=== PATIENT | male | born 1935 | race Caucasian/White ===

== ENCOUNTER → 2017-11-12 | Outpatient (CLI) | payer MEDICARE ==
--- NOTE | 2017-11-12 11:34 | XR ---
EXAMINATION TYPE: XR chest 2V DATE OF EXAM: 11/12/2017 COMPARISON: NONE HISTORY: Shortness of breath TECHNIQUE: Frontal and lateral views of the chest are obtained. FINDINGS: Scattered senescent parenchymal changes noted. Hyperinflation compatible with COPD. No evidence for infiltrate. No evidence for atelectasis. Heart size is stable. Mediastinal structures are stable and grossly unremarkable. No evidence for hilar prominence. Degenerative changes dorsal spine. IMPRESSION: 1. No evidence for acute pulmonary disease.
== END | disposition home or self-care (01) ==
LOC: RADXRMAIN 11:15
PROVIDERS: ATTEND Physical Medicine & Rehabilitation
DX: Z01.818 Encounter for other preprocedural examination (principal)
CPT/HCPCS: 71046

== ENCOUNTER → 2017-11-19 | Outpatient (CLI) | payer MEDICARE ==
--- NOTE | 2017-11-19 14:31 | CT ---
EXAMINATION TYPE: CT lumbar spine wo con DATE OF EXAM: 11/19/2017 2:09 PM COMPARISON: None HISTORY: Spinal stenosis CT DLP: 650.60 mGycm Automated exposure control for dose reduction was used. TECHNIQUE: Unenhanced CT of the lumbar spine was performed. Bone and soft tissue window settings are submitted as well as coronal and sagittal reconstructions. FINDINGS: There is grade 2 anterolisthesis of L3 on L4 with bilateral pars interarticularis defects. There is also moderate to severe multilevel degenerative disc disease that also contribute to this fi nding. There are bridging anterior osteophytes, facet arthropathy, intervertebral disc space narrowin g, vacuum disc disease, intervertebral discs space desiccation, and endplate sclerosis. Schmorl's nod e is seen in the anterior endplate of T11. There is a solid appearing left lower lobe pulmonary nodule measuring 4 mm on series 4 image 1. Retic ular opacity within the right lung base may relate to atelectasis or early interstitial lung disease. There is a small hiatal hernia. Right renal cyst measures 2.4 cm. Scattered colonic diverticula are noted. There is an infrarenal abdominal aortic aneurysm, incompletely evaluated due to lack of intrav enous contrast. However this measures 3.0 x 3.0 cm on series 3 image 67 with severe calcific atheroma tous change. This extends into the common iliac arteries as the right measures 1.8 cm and the left me asures 1.7 cm on series 3 image 82. There is a nonobstructing right lower pole renal calculus measuri ng 8 mm. There is a mild levoscoliotic curvature of the lumbar spine. Right paraspinal musculature gr eater than left paraspinal musculature displays generalized atrophy most pronounced in the lower lumb osacral spine. L1-L2: There is a broad-based disc bulge that examination with facet arthropathy and ligamentum flavu m buckling create mild spinal canal stenosis and moderate bilateral neural foraminal narrowing. L2-L3: There is a broad-based disc bulge that in combination with ligamentum flavum buckling and face t arthropathy creating mild spinal canal stenosis and mild bilateral neural foraminal narrowing. L3-L4: There is disc uncovering, a broad-based disc bulge, extensive facet arthropathy, pars interart icularis defects, and extensive ligamentum flavum buckling creating at least moderate spinal canal st enosis in the transverse dimension, and severe bilateral neural foraminal narrowing impressing upon t he exiting L3 nerve roots. L4-L5: There is a paracentral disc herniation superimposed upon a broad-based disc bulge. Additionall y there is extensive facet arthropathy and mild ligamentum flavum buckling creating severe bilateral neural foraminal narrowing impressing upon the exiting L4 nerve root. There is mild spinal canal sten osis. L5-S1: There is a broad-based disc bulge and extensive facet arthropathy with posterior protruding os teophytes and complete loss of the intervertebral disc space resulting in moderate to severe bilatera l neural foraminal narrowing. No spinal canal stenosis at this level. IMPRESSION: 1. Extensive multilevel degenerative disc disease with grade 2 anterolisthesis of L3 on L4 resulting in severe bilateral neural foraminal narrowing at this level and at least moderate spinal canal steno sis. 2. Central disc herniation in association with extensive degenerative changes at L4-L5 creating sever e bilateral neural foraminal narrowing and mild spinal canal stenosis. 3. Extensive degenerative change at L5-S1 creating moderate to severe bilateral neural foraminal narr owing. Degenerative change at L2-L3 creates mild spinal canal stenosis. 4. Infrarenal abdominal aortic aneurysm extending into the common iliac arteries, incompletely evalua gina secondary to lack of intravenous contrast. 5. Solitary 4 mm left lower lobe pulmonary nodule. Full characterization with chest CT could be perfo rmed. 6. Other incidental finding such as a nonobstructing right lower pole renal calculus, paraspinal musc ulature atrophy, and possible early interstitial lung disease at the right lung base.
== END | disposition home or self-care (01) ==
LOC: RADCTMAIN 13:40
PROVIDERS: ATTEND Physical Medicine & Rehabilitation
DX: M48.061 Spinal stenosis, lumbar region without neurogenic claudication (principal); M99.73 Connective tissue and disc stenosis of intervertebral foramina of lumbar region; M51.27 Other intervertebral disc displacement, lumbosacral region; M43.16 Spondylolisthesis, lumbar region; M51.36 Other intervertebral disc degeneration, lumbar region; M47.817 Spondylosis without myelopathy or radiculopathy, lumbosacral region
CPT/HCPCS: 72131

== ENCOUNTER → 2018-05-05 | Outpatient (CLI) | payer MEDICARE ==
[2018-05-05 10:35] LABS: Blood Urea Nitrogen 32 mg/dL (9-20)
--- NOTE | 2018-05-05 13:10 | CT ---
EXAMINATION TYPE: CT angio neck DATE OF EXAM: 05/05/2018 HISTORY: lt carotid stenosis COMPARISON: 10/05/2015 CT DLP: 301.3 mGycm. Automated Exposure Control for Dose Reduction was Utilized. TECHNIQUE: CTA scan of the neck is performed with IV Contrast, patient injected with 65 mL of Isovue 370, axial images are obtained, coronal and sagittal reformatted images are reviewed. Three-D recons tructed images are created on an independent workstation and reviewed. FINDINGS: Carotid/Vascular Structures: There is a conventional three-vessel branch pattern of the aortic arch. Post CABG changes of the mediastinum are partially visualized. Moderate calcific and noncalcific athe romatous plaquing of the visualized thoracic aorta is seen. No hemodynamically significant stenosis i s noted within either common carotid artery. There is a focal dissection flap seen within the right common carotid artery just prior to the caroti d bulb measuring approximately 7 mm in length seen on axial series 4 image 57 and 58 acentrically. Th ere is calcific and noncalcific atheromatous plaquing of the right carotid bulb with less than 50% st enosis. Cervical portions of the right internal carotid artery appear patent. Calcific plaquing is se en of the cavernous and supraclinoid portions of the right internal carotid artery. Within the left carotid bulb there is focal short segment stenosis of approximately 80%, progressed f rom the prior with a short segment of approximately 7 mm. There is diminutive overall size of the lef t internal carotid artery from eccentric atheromatous plaquing is seen posteriorly. This creates less than 50% stenosis. Remainder of the cervical portions of the left internal carotid artery demonstrat es no hemodynamically significant stenosis. Atherosclerosis is also noted of the cavernous and suprac linoid portions of the left internal carotid artery. Other: Minimal honeycombing is seen anteriorly within the upper lobes indicative of mild fibrosis wit h minimal centrilobular emphysematous change. Moderate multilevel degenerative disc disease of the ce rvical spine is present. Circumferential moderate mucosal thickening of the sphenoid sinus and mild m ucosal thickening in the ethmoid sinuses are seen. Thyroid gland appears diminutive in size. IMPRESSION: 1. Progressive atherosclerosis of the left carotid bulb with degree approximately 80%, progressed fro m 50% over a short segment of 7 mm with diminutive size of the proximal left internal carotid artery although stenosis remains less than 50%. 2. No hemodynamically significant stenosis within the right arterial system of the neck. 3. Mild anterior upper lobe pulmonary fibrosis.
== END ==
LOC: RADCTMAIN 09:51
PROVIDERS: ATTEND Thoracic Surgery (Cardiothoracic Vascular Surgery)
DX: I65.22 Occlusion and stenosis of left carotid artery (principal)
CPT/HCPCS: 82565; 84520; 70498; 36415; Q9967

== ENCOUNTER → 2018-05-31 | Outpatient (CLI) | payer MEDICARE ==
[2018-05-31 08:31] LABS: Blood Urea Nitrogen 31 mg/dL (9-20)
--- NOTE | 2018-05-31 09:29 | CT ---
EXAMINATION TYPE: CT chest w con DATE OF EXAM: 05/31/2018 COMPARISON: Lumbar spine CT 11/19/2017 HISTORY: Solitary pulmonary nodule CT DLP: 325.8 mGycm Automated exposure control for dose reduction was used. CONTRAST: CT scan of the chest is performed with IV Contrast, patient injected with 100 mL of Isovue 300. FINDINGS: LUNGS: There is a 3 mm superior segment right lower lobe pleural-based pulmonary nodule. Subsegmental changes are most atelectasis. 4 mm nodule at the left lung base appears stable from the recent CT sc an. No consolidative pneumonia, pleural effusion or pneumothorax. MEDIASTINUM: Sternotomy wires are seen and there is dural lead. The heart is enlarged. Atheroscleroti c change of the aorta and dense coronary artery calcification. Small hiatal hernia noted. No patholog ic adenopathy. OTHER: Hypertrophic and degenerative change of the spine. Simple appearing right renal cyst. IMPRESSION: 1. Stable 4 mm left lower lobe pulmonary nodule. 2. 3 mm pleural-based superior segment right lower lobe pulmonary nodule. Continued 6 month follow-up CT of the chest for both nodules recommended to confirm stability over the course of 2 years.
== END ==
LOC: RADCTMAIN 07:55
PROVIDERS: ATTEND Family Medicine
DX: R91.1 Solitary pulmonary nodule (principal); I71.4 Abdominal aortic aneurysm, without rupture
CPT/HCPCS: 82565; 84520; 71260; 36415; Q9967

== ENCOUNTER → 2018-11-29 | Outpatient (CLI) | payer MEDICARE ==
[2018-11-29 10:58] LABS: African American GFR (CKD) >90 (>60 ml/min/1.73 sqM); Blood Urea Nitrogen 26 mg/dL (9-20)
--- NOTE | 2018-11-29 17:31 | CT ---
EXAMINATION TYPE: CT chest w con DATE OF EXAM: 11/29/2018 COMPARISON: HISTORY: Pulmonary nodule CT DLP: 464 mGycm, Automated exposure control for dose reduction was used. CONTRAST: Performed injected with 100 ml mL of Isovue 300. TECHNIQUE: Axial images were obtained at 5 mm thick sections. Reconstructed images are reviewed on [employer] computer in the coronal plane. FINDINGS: Portion of the thyroid visualized is normal. Are at 0.3 cm pleural-based nodule within the posterior right lung is less well visualized on the current examination. No interval growth is eviden t. No new nodules are evident. There is a stable 0.4 cm nodule left lower lobe. Series 4 image 42. Mild increased lung markings are in the periphery of the right lung base likely on the basis of mild pulmonary fibrosis. This was present previously. No enlarged mediastinal or hilar adenopathy is evident. The ascending aorta diameter at the level o f the main pulmonary artery is 3.1 cm. The main pulmonary artery diameter at the bifurcation is 2.1 cm. Artery artery calcifications present. Limited CT sections are obtained through the upper abdomen. There is a 3.1 cm cyst measuring 3 Hounsf ield units at superior pole right kidney IMPRESSIONS: 1. Stable 3 mm pleural-based nodule. 2. Stable 4 mm superior segment left lower lobe nodule. 3. Continued monitoring is recommended with follow-up CT chest with contrast in 6 months.
== END | disposition home or self-care (01) ==
LOC: RADCTMAIN 10:14
PROVIDERS: ATTEND Family Medicine
DX: R91.1 Solitary pulmonary nodule (principal)
CPT/HCPCS: 82565; 84520; 71260; 36415; Q9967

== ENCOUNTER → 2019-06-02 | Outpatient (CLI) | payer MEDICARE ==
[2019-06-02 10:25] LABS: African American GFR (CKD) >90 (>60 ml/min/1.73 sqM); Blood Urea Nitrogen 26 mg/dL (9-20); Non-African American GFR(CKD) 88 (>60 ml/min/1.73 sqM)
--- NOTE | 2019-06-02 11:41 | CT ---
EXAMINATION TYPE: CT chest w con DATE OF EXAM: 06/02/2019 COMPARISON: 11/29/2018 and 05/31/2018 HISTORY: 84-year-old male Solitary pulmonary nodule TECHNIQUE: Contiguous axial scanning of the chest after the administration of 100 mL of Isovue 300. Coronal/sagittal reconstructions performed. CT DLP: 336.1mGycm. Automatic exposure control utilized for a dose reduction. FINDINGS: Median sternotomy wires was pulled proximal CABG changes. Heart normal size without pericardial effusion. Aorta normal caliber with mild atherosclerotic arch calcifications and conventional arch vessel branc katrina anatomy. No thoracic lymphadenopathy by CT size criteria. Trace bilateral gynecomastia. Mild centrilobular emphysema. Subpleural groundglass and reticulation is peripheral right base unchan ged from 05/31/2018, probably some type of interstitial fibrosis or scarring. Strandy atelectasis or s carring inferior lingula. No consolidation or pleural effusion. Stable 5 mm posterior left lower lobe pulmonary nodule, axial image 42 dating back to 05/31/2018. Stable 3 mm subpleural pulmonary nodule superior segment right lower lobe, axial image 30 dating back to 05/31/2018. Small hiatal hernia redemonstrated. 2.8 cm right upper pole renal cyst. Moderate stool burden. Modera te atherosclerotic changes within the abdominal aorta with ectasia of the visualized mid abdominal ao rta to 2.7 cm. Bones: Bridging anterior endplate spondylosis throughout the thoracic spine compatible with DISH. IMPRESSION: 1. COPD with mild emphysema and suspected underlying pulmonary arterial hypertension. 2. Some stable interstitial fibrosis at the right greater than left lung bases. 3. A 5 mm left lower lobe and 3 mm right lower lobe pulmonary nodule are stable for a year compatible with a benign etiology.
== END | disposition home or self-care (01) ==
LOC: RADCTMAIN 09:31
PROVIDERS: ATTEND Family Medicine
DX: J43.9 Emphysema, unspecified (principal); J84.10 Pulmonary fibrosis, unspecified
CPT/HCPCS: 82565; 84520; 71260; 36415; Q9967

== ENCOUNTER 2021-03-22 12:04 | Observation (INO) | payer MEDICARE ==
--- NOTE | 2021-03-22 12:40 | ED ---
Arrhythmia/Palpitations HPI - General Chief Complaint: Arrhythmia/Palpitations Stated Complaint: Afib Time Seen by Provider: 03/22/21 12:23 Source: patient Mode of arrival: wheelchair Limitations: no limitations - History of Present Illness Initial Comments: This 85-year-old male presents with a complaint of some fatigue which is been present over the last 4 days. He states that his blood pressure was low the last 2 days as well. He had a systolic of 81 yesterday and his blood pressure today was 65/51. He saw his primary care physician and they found that he is in atrial fibrillation. His systolic in the office apparently was 90. He denies any chest pain, shortness of breath, fevers, chills. He denies any complaints other than some fatigue. He denies any leg pain or swelling. He denies any history of atrial fibrillation. He does have a history of previous myocardial infarction 20 years ago and had a CABG at that time. He follows up with Dr. Mccann from cardiology every 6 months. No other complaints or modifying factors. He does relate that he has had occasional dry cough but this is not out of the ordinary. He denies any exposure to over. - Related Data Allergies Allergy/AdvReac Type Severity Reaction Status Date / Time No Known Allergies Allergy Verified 03/22/21 12:18 Review of Systems ROS Statement: Those systems with pertinent positive or pertinent negative responses have been documented in the HPI. ROS Other: All systems not noted in ROS Statement are negative. Past Medical History Past Medical History: Coronary Artery Disease (CAD), Hyperlipidemia, Hyper tension History of Any Multi-Drug Resistant Organisms: None Reported Past Surgical History: Coronary Bypass/CABG, Heart Catheterization With Stent Past Psychological History: No Psychological Hx Reported Smoking Status: Never smoker Past Alcohol Use History: Occasional Past Drug Use History: None Reported General Exam - General Exam Comments Initial Comments: GENERAL: The patient is well nourished and well hydrated. VITAL SIGNS: Heart rate, blood pressure, respiratory rate reviewed as recorded in nurse's notes. EYES: Pupils are round and reactive. Extraocular movements are intact. No conjunctival / lid redness or swelling. ENT: No external evidence of injury, swelling, or ecchymosis. Airway is patent. Throat is clear. NECK: Nontender. No swelling or evidence of injury. No subcutaneous emphysema. Trachea is midline. No thyroid mass. HEART: Irregular rhythm, normal rate. Good peripheral pulses. LUNGS/CHEST: Breath sounds clear and equal bilaterally. No rales, rhonchi, or wheezes. No ecchymosis, subcutaneous emphysema, or tenderness. ABDOMEN: Abdomen soft without tenderness. No palpable masses or organomegaly. No peritoneal signs. No abdominal wall swelling or ecchymosis. EXTREMITIES: No extremity tenderness. Normal muscle tone and function. No thoracolumbar tenderness. NEUROLOGIC: Sensation is grossly intact. Cranial nerve exam reveals face is symmetrical, tongue is midline, speech is clear. SKIN: No abrasions or ecchymosis is noted. No induration or masses noted. PSYCHIATRIC: Alert and oriented. Appropriate behavior and judgment. Limitations: no limitations Course Vital Signs 03/22/21 12:14 Temperature 97.9 F Pulse Rate 86 Respiratory 18 Rate Blood Pressure 130/80 O2 Sat by Pulse 98 Oximetry Medical Decision Making - Medical Decision Making Patient was seen and examined. All diagnostics are reviewed. EKG was done and shows atrial fibrillation at a rate of 87. There is no acute ST-T wave changes identified. The QRS duration is 106 and the QTC intervals 447. The laboratory shows mild hyponatremia and mild hypochloremia. Remainder of labs are unremarkable. Chest x-ray shows evidence of a right lower lobe infiltrate. Please see report for details. The patient is started on Rocephin and Zithromax intravenously. He also will be started on heparin. The exact cause of the new-onset atrial fibrillation is not definitively determined. It is felt as though he benefit from admission, IV antibiotics, and cardiology consultation. Patient is agreeable as well. Case is discussed with Dr. Botello from internal medicine and he is agreeable with current plan. - Lab Data Result diagrams: 03/22/21 12:55 03/22/21 12:55 Lab Results 03/22/21 03/22/21 03/22/21 Range/Units 12:55 12:55 12:55 WBC 5.0 (3.8-10.6) k/uL RBC 4.53 (4.30-5.90) m/uL Hgb 13.3 (13.0-17.5) gm/dL Hct 40.2 (39.0-53.0) % MCV 88.8 (80.0-100.0) fL MCH 29.4 (25.0-35.0) pg MCHC 33.1 (31.0-37.0) g/dL RDW 14.4 (11.5-15.5) % Plt Count 174 (150-450) k/uL MPV 7.5 Neutrophils % (Manual) 66 % Band Neuts % (Manual) 2 % Lymphocytes % (Manual) 17 % Monocytes % (Manual) 15 % Neutrophils # (Manual) 3.40 (1.3-7.7) k/uL Lymphocytes # (Manual) 0.85 L (1.0-4.8) k/uL Monocytes # (Manual) 0.75 (0-1.0) k/uL Nucleated RBCs 0 (0-0) /100 WBC Manual Slide Review Performed RBC Morphology Normal PT 10.0 (9.0-12.0) sec INR 0.9 (<1.2) APTT 25.7 (22.0-30.0) sec Sodium 131 L (137-145) mmol/L Potassium 4.4 (3.5-5.1) mmol/L Chloride 97 L (98-107) mmol/L Carbon Dioxide 29 (22-30) mmol/L Anion Gap 5 mmol/L BUN 19 (9-20) mg/dL Creatinine 0.69 (0.66-1.25) mg/dL Est GFR (CKD-EPI)AfAm >90 (>60 ml/min/1.73 sqM) Est GFR (CKD-EPI)NonAf 88 (>60 ml/min/1.73 sqM) Glucose 103 H (74-99) mg/dL Calcium 8.8 (8.4-10.2) mg/dL Magnesium 2.0 (1.6-2.3) mg/dL Total Bilirubin 0.4 (0.2-1.3) mg/dL AST 35 (17-59) U/L ALT 22 (4-49) U/L Alkaline Phosphatase 65 (38-126) U/L Troponin I (0.000-0.034) ng/mL Total Protein 6.7 (6.3-8.2) g/dL Albumin 3.9 (3.5-5.0) g/dL TSH 2.160 (0.465-4.680) mIU/L Urine Color Urine Appearance (Clear) Urine pH (5.0-8.0) Ur Specific [place] (1.001-1.035) Urine Protein (Negative) Urine Glucose (UA) (Negative) Urine Ketones (Negative) Urine Blood (Negative) Urine Nitrite (Negative) Urine Bilirubin (Negative) Urine Urobilinogen (<2.0) mg/dL Ur Leukocyte Esterase (Negative) Urine RBC (0-5) /hpf Urine WBC (0-5) /hpf Ur Squamous Epith Cells (0-4) /hpf Hyaline Casts (0-2) /lpf Urine Mucus (None) /hpf 03/22/21 03/22/21 Range/Units 12:55 12:55 WBC (3.8-10.6) k/uL RBC (4.30-5.90) m/uL Hgb (13.0-17.5) gm/dL Hct (39.0-53.0) % MCV (80.0-100.0) fL MCH (25.0-35.0) pg MCHC (31.0-37.0) g/dL RDW (11.5-15.5) % Plt Count (150-450) k/uL MPV Neutrophils % (Manual) % Band Neuts % (Manual) % Lymphocytes % (Manual) % Monocytes % (Manual) % Neutrophils # (Manual) (1.3-7.7) k/uL Lymphocytes # (Manual) (1.0-4.8) k/uL Monocytes # (Manual) (0-1.0) k/uL Nucleated RBCs (0-0) /100 WBC Manual Slide Review RBC Morphology PT (9.0-12.0) sec INR (<1.2) APTT (22.0-30.0) sec Sodium (137-145) mmol/L Potassium (3.5-5.1) mmol/L Chloride (98-107) mmol/L Carbon Dioxide (22-30) mmol/L Anion Gap mmol/L BUN (9-20) mg/dL Creatinine (0.66-1.25) mg/dL Est GFR (CKD-EPI)AfAm (>60 ml/min/1.73 sqM) Est GFR (CKD-EPI)NonAf (>60 ml/min/1.73 sqM) Glucose (74-99) mg/dL Calcium (8.4-10.2) mg/dL Magnesium (1.6-2.3) mg/dL Total Bilirubin (0.2-1.3) mg/dL AST (17-59) U/L ALT (4-49) U/L Alkaline Phosphatase (38-126) U/L Troponin I 0.014 (0.000-0.034) ng/mL Total Protein (6.3-8.2) g/dL Albumin (3.5-5.0) g/dL TSH (0.465-4.680) mIU/L Urine Color Yellow Urine Appearance Clear (Clear) Urine pH 6.0 (5.0-8.0) Ur Specific [place] 1.021 (1.001-1.035) Urine Protein 1+ H (Negative) Urine Glucose (UA) Negative (Negative) Urine Ketones Negative (Negative) Urine Blood Negative (Negative) Urine Nitrite Negative (Negative) Urine Bilirubin Negative (Negative) Urine Urobilinogen <2.0 (<2.0) mg/dL Ur Leukocyte Esterase Negative (Negative) Urine RBC 2 (0-5) /hpf Urine WBC 3 (0-5) /hpf Ur Squamous Epith Cells <1 (0-4) /hpf Hyaline Casts 7 H (0-2) /lpf Urine Mucus Many H (None) /hpf Disposition Clinical Impression: New onset atrial fibrillation, Fatigue, Hypotension, Pneumonia Disposition: ADMITTED IP TO THIS [facility] Condition: Fair Is patient prescribed a controlled substance at d/c from ED?: No Referrals: Tamica Trujillo MD [Primary Care Provider] - 1-2 days Time of Disposition: 14:40 Decision Date: 03/22/21 Decision Time: 14:41
--- NOTE | 2021-03-22 13:08 | XR ---
EXAMINATION TYPE: XR chest 2V DATE OF EXAM: 03/22/2021 COMPARISON: 11/12/2017 INDICATION: Dysrhythmia TECHNIQUE: Frontal and lateral views of the chest are obtained. FINDINGS: The heart size is normal. The pulmonary vasculature is normal. Mild infiltrates at the right lung base. IMPRESSION: 1. Right lower lobe infiltrate is nonspecific. Correlate for atelectasis and pneumonia, consider atyp ical pneumonia
[2021-03-22 13:22] LABS: ALT 22 U/L (4-49); AST 35 U/L (17-59); African American GFR (CKD) >90 (>60 ml/min/1.73 sqM); Albumin 3.9 g/dL (3.5-5.0); Alkaline Phosphatase 65 U/L (38-126); Anion Gap 5 mmol/L; Blood Urea Nitrogen 19 mg/dL (9-20); Calcium 8.8 mg/dL (8.4-10.2); Carbon Dioxide 29 mmol/L (22-30); Chloride 97 mmol/L (98-107); Glucose 103 mg/dL (74-99); Non-African American GFR(CKD) 88 (>60 ml/min/1.73 sqM); Potassium 4.4 mmol/L (3.5-5.1); Sodium 131 mmol/L (137-145); Total Bilirubin 0.4 mg/dL (0.2-1.3); Total Protein 6.7 g/dL (6.3-8.2)
[2021-03-22 13:25] LABS: HCT 40.2 % (39.0-53.0); HGB 13.3 gm/dL (13.0-17.5); MCH 29.4 pg (25.0-35.0); MCHC 33.1 g/dL (31.0-37.0); MCV 88.8 fL (80.0-100.0); Mean Platelet Volume 7.5; Platelet Count 174 k/uL (150-450); RBC 4.53 m/uL (4.30-5.90); RDW 14.4 % (11.5-15.5)
[2021-03-22 13:27] LABS: INR 0.9 (<1.2); Partial Thromboplastin Time 25.7 sec (22.0-30.0)
[2021-03-22 13:52] LABS: Band Neutrophils % 2 %; Lymphocytes # (M) 0.85 k/uL (1.0-4.8); Monocytes # (M) 0.75 k/uL (0-1.0); Neutrophils % (M) 66 %; Nucleated Red Blood Cells 0 /100 WBC (0-0); Total Cells Counted 100
[2021-03-22 14:15] LABS: Appearance,Urine Clear (Clear); Bilirubin,Urine Negative (Negative); Blood,Urine Negative (Negative); Color,Urine Yellow; Glucose,Urine (UA) Negative (Negative); Hyaline Casts,Urine 7 /lpf (0-2); Ketones,Urine Negative (Negative); Leukocyte Esterase,Urine Negative (Negative); Mucus,Urine Many /hpf; Nitrite,Urine Negative (Negative); Protein,Urine 1+ (Negative); RBC,Urine 2 /hpf (0-5); Specific Gravity,Urine 1.021 (1.001-1.035); Squamous Epithelial Cell,Urine <1 /hpf (0-4); Urobilinogen,Urine <2.0 mg/dL (<2.0); WBC,Urine 3 /hpf (0-5)
[2021-03-22] MEDS ORDERED: AZITHROMYCIN 500 MG in SODIUM CHLORIDE 0.9% 250 ML IVPB STA (14:33)
[2021-03-22] MEDS ORDERED: HEPARIN SODIUM 1,000 UN/ML (10ML VL) IV PRN (14:41)
[2021-03-22] MEDS ORDERED: HEPARIN SODIUM 1,000 UN/ML (10ML VL) IV ONE (14:41)
[2021-03-22] MEDS ORDERED: ACETAMINOPHEN TAB 325 MG TAB PO PRN (14:43)
[2021-03-22] MEDS: HEPARIN SOD,PORK IN 0.45% NACL 25,000 UNIT in 0.45% NACL 1 250ML.BAG IV SCH (17:03)
[2021-03-23] MEDS: PANTOPRAZOLE 40 MG/10 ML VIAL IV SCH (08:59)
[2021-03-23 10:56] LABS: Partial Thromboplastin Time 74.5 sec (22.0-30.0); Prothrombin Time 10.5 sec (9.0-12.0)
[2021-03-23 10:59] LABS: HCT 36.3 % (39.0-53.0); MCH 29.3 pg (25.0-35.0); MCHC 33.1 g/dL (31.0-37.0); MCV 88.4 fL (80.0-100.0); Mean Platelet Volume 7.4; Platelet Count 166 k/uL (150-450); RDW 14.3 % (11.5-15.5); WBC 3.7 k/uL (3.8-10.6)
[2021-03-23] MEDS: AZITHROMYCIN 500 MG in SODIUM CHLORIDE 0.9% 250 ML IVPB SCH (11:02)
[2021-03-23 11:17] LABS: Lymphocytes # (M) 0.93 k/uL (1.0-4.8); Monocytes # (M) 0.56 k/uL (0-1.0); Neutrophils # (M) 2.22 k/uL (1.3-7.7); Neutrophils % (M) 60 %; Nucleated Red Blood Cells 0 /100 WBC (0-0); Total Cells Counted 100
[2021-03-23] MEDS ORDERED: CLOPIDOGREL 75 MG TAB PO SCH (11:30)
[2021-03-23] MEDS: ASPIRIN 81 MG PO SCH (12:29)
--- NOTE | 2021-03-23 14:18 | P.HPIM ---
History of Present Illness H&P Date: 03/23/21 Morgan Avendano, is an 85-year-old male who presented to [facility] emergency room with a chief complaint of fatigue and hypotension at home, patient had a systolic blood pressure in the 80s, he was seen by his primary care physician who advised him to go to emergency room. He was evaluated in the emergency room vital examination on presentation revealed a temperature of 97.9 pulse 86 respiration 18 blood pressure 130/80 and pulse ox of 98% Laboratory data revealed a white blood count of 5.0 hemoglobin 13.3 platelet count 174 sodium 131 potassium 4.4 chloride 97 BUN 19 creatinine 0.69 coronavirus PCR was positive Testing in the emergency room revealed, chest x-ray done in the emergency room revealed right lower lobe infiltrate, EKG revealed evidence of atrial fibrillation which is new for patient, and nonspecific ST abnormality, he was started Patient was admitted to medical floor for further evaluation and treatment, he was started on IV Rocephin and Zithromax in the emergency room, in regard to right lower lobe infiltrate and IV heparin in regard to atrial fibrillation. Past medical history is significant for history of hypertension, history of hypothyroidism, history of hyperlipidemia, history of coronary artery disease, history of abdominal aortic aneurysm, history of osteoarthritis On review of systems patient is alert and oriented 3 very pleasant in no appa rent distress he denies any fever or chills no headache or dizziness no chest pain no shortness of breath no cough no nausea or vomiting no abdominal pain no diarrhea no blood in the stools no burning with urination no frequency or urgency and no hematuria shortness or numbness in any of his extremities no change in vision or speech or gait. Past Medical History Past Medical History: Coronary Artery Disease (CAD), Hyperlipidemia, Hypertension History of Any Multi-Drug Resistant Organisms: None Reported Past Surgical History: Coronary Bypass/CABG, Heart Catheterization With Stent Past Anesthesia/Blood Transfusion Reactions: No Reported Reaction Additional Past Anesthesia/Blood Transfusion Reaction / Comment(s): no hx of transfusion Date of Last Stent Placement:: 2001 Smoking Status: Never smoker Medications and Allergies Home Medications Medication Instructions Recorded Confirmed Type Ascorbic Acid [Vitamin C] 500 mg PO HS 03/22/21 03/22/21 History Aspirin 81 mg PO DAILY 03/22/21 03/22/21 History Calcium Carbonate [Calcium] 600 mg PO HS 03/22/21 03/22/21 History Cholecalciferol [Vitamin D3 (25 25 mcg PO HS 03/22/21 03/22/21 History Mcg = 1000 Iu)] Clopidogrel [Plavix] 75 mg PO DAILY 03/22/21 03/22/21 History Ezetimibe [Zetia] 10 mg PO HS 03/22/21 03/22/21 History Latanoprost [Xalatan 0.005%] 1 drop BOTH EYES HS 03/22/21 03/22/21 History Levothyroxine Sodium [Synthroid] 88 mcg PO HS 03/22/21 03/22/21 History Loratadine [Claritin] 10 mg PO HS 03/22/21 03/22/21 History Losartan Potassium 50 mg PO HS 03/22/21 03/22/21 History Magnesium With B-Complex 1 tab PO HS 03/22/21 03/22/21 History Multivitamins, Thera [Multivitamin 1 tab PO HS 03/22/21 03/22/21 History (formulary)] [place]-3/Dha/Epa/Fish Oil [Fish Oil 1 cap PO HS 03/22/21 03/22/21 History 500 mg Softgel] Rosuvastatin [Crestor] 10 mg PO TUTH 03/22/21 03/22/21 History Vit C/E/Zn/Coppr/Lutein/Zeaxan 1 cap PO HS 03/22/21 03/22/21 History [Preservision Areds 2 Softgel] Allergies Allergy/AdvReac Type Severity Reaction Status Date / Time No Known Allergies Allergy Verified 03/22/21 15:04 Physical Exam Vitals: Vital Signs Temp Pulse Pulse Resp BP BP Pulse Ox 03/23/21 02:00 99.2 F 73 16 142/79 97 03/22/21 23:17 100.6 F H 66 18 134/69 96 03/22/21 20:00 98.2 F 82 18 125/86 98 03/22/21 19:07 73 18 129/81 98 03/22/21 12:14 97.9 F 86 18 130/80 98 Intake and Output 03/22/21 03/23/21 03/23/21 22:59 06:59 14:59 Intake Total 485 63.017 Balance 485 63.017 Intake: Intake, IV Titration 63.017 Amount Heparin Sod,Pork in 0.45% 63.017 NaCl 25,000 unit In 0.45 % NaCl 1 250ml.bag @ 12 UNITS/KG/HR 8.981 mls/hr IV .Q24H [facility] Rx#: [id number] Oral 485 Other: Voiding Method Toilet Toilet # Voids 2 Weight 74.843 kg In general patient is alert and oriented x 3 in no distress HEENT head normocephalic and atraumatic Neck is supple no JVD no goiter no lymphadenopathy no carotid bruit Chest examination is clear to auscultation no crackles no wheezing Cardiac exam reveals regular heart sounds S1 and S2 no gallops no murmurs Abdomen is soft nontender no organomegaly with normal bowel sounds Extremity exam reveals no edema no cyanosis or clubbing Neurological examination reveals no gross focal deficits Results CBC & Chem 7: 03/23/21 10:23 03/22/21 12:55 Labs: Abnormal Lab Results - Last 24 Hours (Table) 03/22/21 03/22/21 03/22/21 Range/Units 12:55 12:55 12:55 Lymphocytes # (Manual) 0.85 L (1.0-4.8) k/uL APTT (22.0-30.0) sec Sodium 131 L (137-145) mmol/L Chloride 97 L (98-107) mmol/L Glucose 103 H (74-99) mg/dL Urine Protein 1+ H (Negative) Hyaline Casts 7 H (0-2) /lpf Urine Mucus Many H (None) /hpf Coronavirus (PCR) (Not Detectd) 03/22/21 03/22/21 Range/Units 15:47 23:05 Lymphocytes # (Manual) (1.0-4.8) k/uL APTT 119.5 H* (22.0-30.0) sec Sodium (137-145) mmol/L Chloride (98-107) mmol/L Glucose (74-99) mg/dL Urine Protein (Negative) Hyaline Casts (0-2) /lpf Urine Mucus (None) /hpf Coronavirus (PCR) Detected A (Not Detectd) Assessment and Plan Plan: 1. Right lower lobe infiltrate possible pneumonia and started on IV Rocephin and IV Zithromax in the emergency room 2. New-onset atrial fibrillation, heart rate is well-controlled patient was started on IV heparin in the emergency room 3. Positive coronavirus PCR testing in the emergency room, patient is doubting results and asking for repeat testing 4. Underlying history of hypertension 5. Underlying history of hyperlipidemia 6. Underlying history of hypothyroidism 7. Underlying history of coronary artery disease with previous history of car diac catheterization with angioplasty and stent placement and history of coronary artery bypass graft surgery 8. Underlying history of osteoarthritis. At this time patient is admitted to telemetry floor He was started on IV heparin, IV Rocephin and Zithromax Home medications reviewed and reordered Cardiology consultation was requested in the emergency room Pulmonary consultation was added due to abnormal chest x-ray was possible pneumonia and positive coronavirus PCR testing Will follow closely
--- NOTE | 2021-03-23 15:31 | P.CNPUL ---
History of Present Illness Consult date: 03/23/21 Requesting physician: Stevan Botello Reason for consult: hypoxemia, other Chief complaint: New onset Afib, COVID 19 infection History of present illness: This is a 85-year-old white male patient who came into the emergency department on 03/22/2021 for evaluation of fatigue and hypotension at home. Patient had a systolic blood pressure in the 80s, he was seen by his primary care physician in the office he was found to have new onset atrial fibrillation, and he was sent into the emergency department for further evaluation and treatment. His vital signs in the emergency department were stable with a blood pressure 130/80, patient was afebrile, EKG revealed atrial fibrillation and nonspecific ST abnormality, with a controlled rate of 86 BPM, room air pulse ox was 98%, patient denied any respiratory difficulty, since 03/18/2021 patient thought he was having watery eyes, nasal congestion related to ALLERGIES. But denied any fever or chills, he does have a dry cough, but no bony aches, no nausea vomiting or diarrhea, he was started on Rocephin and azithromycin in the emergency department, his chest x-ray showed nonspecific right lower lobe infiltrate. His COVID-19 test was positive. He is currently being retested with another PCR test. He states otherwise he is feeling good, his tested herself at home and she was negative. Apparently patient's grandson tested pos itive at work, he is asymptomatic, but he undergoes frequent testing for work requirement. Grandson was retested and he was told that he had a false positive test. Currently patient is asymptomatic, other than having a dry cough. Today's labs have been reviewed showing white blood cell count of 3.7, hemoglobin is 12. He is on heparin infusion for new onset atrial fibrillation. His other medical history is coronary artery disease, with previous history of bypass grafting, hypertension, hyperlipidemia, hypothyroidism, previous history of abdominal aortic aneurysm, and osteoarthritis. Patient is a lifetime nonsmoker, no history of chronic lung disease. Review of Systems All systems: negative Constitutional: Reports fatigue, Reports weakness, Denies chills, Denies fever Eyes: denies blurred vision, denies pain Ears, nose, mouth and throat: Denies headache, Denies sore throat Cardiovascular: Denies chest pain, Denies shortness of breath Respiratory: Reports cough Gastrointestinal: Denies abdominal pain, Denies diarrhea, Denies nausea, Denies vomiting Musculoskeletal: Denies myalgias Integumentary: Denies pruritus, Denies rash Neurological: Denies numbness, Denies weakness Psychiatric: Denies anxiety, Denies depression Endocrine: Denies fatigue, Denies weight change Past Medical History Past Medical History: Coronary Artery Disease (CAD), Hyperlipidemia, Hypertension History of Any Multi-Drug Resistant Organisms: None Reported Past Surgical History: Coronary Bypass/CABG, Heart Catheterization With Stent Past Anesthesia/Blood Transfusion Reactions: No Reported Reaction Additional Past Anesthesia/Blood Transfusion Reaction / Comment(s): no hx of transfusion Date of Last Stent Placement:: 2001 Smoking Status: Never smoker Medications and Allergies Home Medications Medication Instructions Recorded Confirmed Type Ascorbic Acid [Vitamin C] 500 mg PO HS 03/22/21 03/22/21 History Aspirin 81 mg PO DAILY 03/22/21 03/22/21 History Calcium Carbonate [Calcium] 600 mg PO HS 03/22/21 03/22/21 History Cholecalciferol [Vitamin D3 (25 25 mcg PO HS 03/22/21 03/22/21 History Mcg = 1000 Iu)] Clopidogrel [Plavix] 75 mg PO DAILY 03/22/21 03/22/21 History Ezetimibe [Zetia] 10 mg PO HS 03/22/21 03/22/21 History Latanoprost [Xalatan 0.005%] 1 drop BOTH EYES HS 03/22/21 03/22/21 History Levothyroxine Sodium [Synthroid] 88 mcg PO HS 03/22/21 03/22/21 History Loratadine [Claritin] 10 mg PO HS 03/22/21 03/22/21 History Losartan Potassium 50 mg PO HS 03/22/21 03/22/21 History Magnesium With B-Complex 1 tab PO HS 03/22/21 03/22/21 History Multivitamins, Thera [Multivitamin 1 tab PO HS 03/22/21 03/22/21 History (formulary)] [place]-3/Dha/Epa/Fish Oil [Fish Oil 1 cap PO HS 03/22/21 03/22/21 History 500 mg Softgel] Rosuvastatin [Crestor] 10 mg PO TUTH 03/22/21 03/22/21 History Vit C/E/Zn/Coppr/Lutein/Zeaxan 1 cap PO HS 03/22/21 03/22/21 History [Preservision Areds 2 Softgel] Allergies Allergy/AdvReac Type Severity Reaction Status Date / Time No Known Allergies Allergy Verified 03/22/21 15:04 Physical Exam Vitals: Vital Signs Temp Pulse Pulse Resp BP BP Pulse Ox 03/23/21 11:56 98.2 F 71 20 113/66 98 03/23/21 08:00 98.2 F 80 20 122/74 95 03/23/21 02:00 99.2 F 73 16 142/79 97 03/22/21 23:17 100.6 F H 66 18 134/69 96 03/22/21 20:00 98.2 F 82 18 125/86 98 03/22/21 19:07 73 18 129/81 98 Intake and Output 03/23/21 03/23/21 03/23/21 06:59 14:59 22:59 Intake Total 63.017 247.585 Balance 63.017 247.585 Intake: Intake, IV Titration 63.017 67.585 Amount Heparin Sod,Pork in 0.45% 63.017 67.585 NaCl 25,000 unit In 0.45 % NaCl 1 250ml.bag @ 12 UNITS/KG/HR 8.981 mls/hr IV .Q24H [facility] Rx#: [id number] Oral 180 Other: Voiding Method Toilet # Voids 2 Weight 74.843 kg GENERAL EXAM: Alert, very pleasant, 85-year-old white male, on room air, pulse ox of 98% comfortable in no apparent distress. HEAD: Normocephalic/atraumatic. EYES: Normal reaction of pupils, equal size. Conjunctiva pink, sclera white. NOSE: Clear with pink turbinates. THROAT: No erythema or exudates. NECK: No masses, no JVD, no thyroid enlargement, no adenopathy. CHEST: No chest wall deformity. Symmetrical expansion. LUNGS: Equal air entry with bibasilar rales CVS: Regular rate and rhythm, normal S1 and S2, no gallops, no murmurs, no rubs ABDOMEN: Soft, nontender. No hepatosplenomegaly, normal bowel sounds, no guarding or rigidity. EXTREMITIES: No clubbing, no edema, no cyanosis, 2+ pulses and upper and lower extremities. MUSCULOSKELETAL: Muscle strength and tone normal. SPINE: No scoliosis or deformity SKIN: No rashes CENTRAL NERVOUS SYSTEM: Alert and oriented -3. No focal deficits, tone is normal in all 4 extremities. PSYCHIATRIC: Alert and oriented -3. Appropriate affect. Intact judgment and insight. Results - Laboratory Findings CBC and BMP: 03/23/21 10:23 03/22/21 12:55 PT/INR, D-dimer PT 10.5 sec (9.0-12.0) 03/23/21 10:23 INR 1.0 (<1.2) 03/23/21 10:23 Abnormal lab findings: Abnormal Labs 03/22/21 03/22/21 03/22/21 12:55 12:55 12:55 WBC RBC Hgb Hct Lymphocytes # (Manual) 0.85 L APTT Sodium 131 L Chloride 97 L Glucose 103 H Urine Protein 1+ H Hyaline Casts 7 H Urine Mucus Many H Coronavirus (PCR) 03/22/21 03/22/21 03/23/21 15:47 23:05 10:23 WBC 3.7 L RBC 4.10 L Hgb 12.0 L Hct 36.3 L Lymphocytes # (Manual) 0.93 L APTT 119.5 H* Sodium Chloride Glucose Urine Protein Hyaline Casts Urine Mucus Coronavirus (PCR) Detected A 03/23/21 10:23 WBC RBC Hgb Hct Lymphocytes # (Manual) APTT 74.5 H Sodium Chloride Glucose Urine Protein Hyaline Casts Urine Mucus Coronavirus (PCR) - Diagnostic Findings Chest x-ray: report reviewed, image reviewed Assessment and Plan Plan: assessment: #1. COVID-19 infection, without significant pulmonary symptoms, and no hypoxia, this was an incidental finding during evaluation for new onset A. fib. patient is currently being retested with another PCR test. chest x-ray showed right lower lobe infiltrate which is nonspecific. patient reports constitutional symptoms of fatigue at home #2. New Onset A. fib #3. history of coronary artery disease, with history of bypass grafting and coronary artery stenting #4. Hypertension #5. Hyperlipidemia #6. lifetime nonsmoker #7. Previous history of myocardial infarction 20 years ago Plan: We will obtain a pro-calcitonin level COVID-19 PCR is being repeated Will await the results of the repeat test Currently not hypoxic, and not having any significant pulmonary symptoms No need for Decadron oral Remdesivir at this time Patient is currently on heparin, and he will likely be placed on oral anticoagulation for his new onset A. fib We'll continue to follow his clinical course We'll monitor for worsening hypoxia or dyspnea I performed a history & physical examination of the patient and discussed their management with my nurse practitioner, Deann Johnson. I reviewed the nurse practitioner's note and agree with the documented findings and plan of care. Lung sounds are positive for diffuse bibasilar crackles throughout the lung [place]lin. The findings and the impression was discussed with the patient. I attest to the documentation by the nurse practitioner. Time with Patient: Greater than 30
[2021-03-23 16:37] LABS: C Reactive Protein 3.3 mg/dL (<1.0)
[2021-03-23 16:50] LABS: Partial Thromboplastin Time 61.9 sec (22.0-30.0)
[2021-03-23] MEDS: HEPARIN SOD,PORK IN 0.45% NACL 25,000 UNIT in 0.45% NACL 1 250ML.BAG IV SCH (17:47)
[2021-03-23] MEDS: ZINC SULFATE 220 MG CAP PO SCH (17:47)
--- NOTE | 2021-03-23 19:33 | P.CRDCN ---
History of Present Illness History of present illness: HISTORY OF PRESENTING ILLNESS This is a pleasant 85-year-old with past medical history significant for coronary artery disease status post CABG, carotid artery stenosis status post TCAR, hypertension, hyperlipidemia who presented to the hospital secondary to episodes of feeling fatigued and blood pressure being low. Patient states he checks his blood pressure on a daily basis and usually more in the 120s to 130s however it was in the 90s to 100 100s and he was feeling fatigued and therefore came to the emergency department. He denies any recent fevers, chills, cough. He was found to be positive for COVID-19 however he does not really believe that test. He denies any chest pain, pressure, tightness. He was however found to be in new onset of A. fib with relatively controlled ventricular rates which is new for him. He normally follows in the office with Dr Arizmendi. He was given some IV fluids and states that overall he feels much better. Currently denies any chest pain or pressure or fatigue. REVIEW OF SYSTEMS At the time of my exam: CONSTITUTIONAL: Denies fever or chills. +fatigue CARDIOVASCULAR: Denies chest pain, shortness of breath, orthopnea, PND or palpitations. RESPIRATORY: Denies cough. GASTROINTESTINAL: Denies abdominal pain, diarrhea, constipation, nausea or vomiting. MUSCULOSKELETAL: Denies myalgias. NEUROLOGIC: Denies numbness, tingling or weakness. ENDOCRINE: Denies fatigue, weight change, polydipsia or polyurina. GENITOURINARY: Denies burning, hematuria or urgency with micturation. HEMATOLOGIC: Denies history of anemia or bleeding. PHYSICAL EXAMINATION Vital signs reviewed. Patient and COVID-19 precautions and not examined. Appears comfortable from the doorway. ASSESSMENT 1. New-onset atrial fibrillation with controlled ventricular rates 2. History of coronary artery disease with prior CABG 3. Carotid artery stenosis status post TCAR 4. Hypertension, mildly hypotensive on presentation or at home 5. Fatigue 6. Questionable COVID-19 infection PLAN Patient overall states he is feeling much better. Unclear etiology of fatigue however given the fact that he is still in A. fib and his heart rates were never really that rapid do not feel that his fatigue is likely related to A. fib as he remains in A. fib. Possible COVID-19 infection however appears relatively asymptomatic. Continue with current regimen as his rates have been well controlled. Discussed recommendations for anticoagulation, likely with Eliquis 5 mg twice a day if covered by insurance. Would recommend discontinuation of Plavix. No further recommendations from a cardiology standpoint. Patient may be discharged home with outpatient follow-up in 1 week. Past Medical History Past Medical History: Coronary Artery Disease (CAD), Hyperlipidemia, Hypertension History of Any Multi-Drug Resistant Organisms: None Reported Past Surgical History: Coronary Bypass/CABG, Heart Catheterization With Stent Past Anesthesia/Blood Transfusion Reactions: No Reported Reaction Additional Past Anesthesia/Blood Transfusion Reaction / Comment(s): no hx of transfusion Date of Last Stent Placement:: 2001 Smoking Status: Never smoker Medications and Allergies Home Medications Medication Instructions Recorded Confirmed Type Ascorbic Acid [Vitamin C] 500 mg PO HS 03/22/21 03/22/21 History Aspirin 81 mg PO DAILY 03/22/21 03/22/21 History Calcium Carbonate [Calcium] 600 mg PO HS 03/22/21 03/22/21 History Cholecalciferol [Vitamin D3 (25 25 mcg PO HS 03/22/21 03/22/21 History Mcg = 1000 Iu)] Clopidogrel [Plavix] 75 mg PO DAILY 03/22/21 03/22/21 History Ezetimibe [Zetia] 10 mg PO HS 03/22/21 03/22/21 History Latanoprost [Xalatan 0.005%] 1 drop BOTH EYES HS 03/22/21 03/22/21 History Levothyroxine Sodium [Synthroid] 88 mcg PO HS 03/22/21 03/22/21 History Loratadine [Claritin] 10 mg PO HS 03/22/21 03/22/21 History Losartan Potassium 50 mg PO HS 03/22/21 03/22/21 History Magnesium With B-Complex 1 tab PO HS 03/22/21 03/22/21 History Multivitamins, Thera [Multivitamin 1 tab PO HS 03/22/21 03/22/21 History (formulary)] Harmony-3/Dha/Epa/Fish Oil [Fish Oil 1 cap PO HS 03/22/21 03/22/21 History 500 mg Softgel] Rosuvastatin [Crestor] 10 mg PO TUTH 03/22/21 03/22/21 History Vit C/E/Zn/Coppr/Lutein/Zeaxan 1 cap PO HS 11/05/21 11/05/21 History [Preservision Areds 2 Softgel] Allergies Allergy/AdvReac Type Severity Reaction Status Date / Time No Known Allergies Allergy Verified 03/22/21 15:04 Physical Exam Vitals: Vital Signs Temp Pulse Resp BP Pulse Ox 03/23/21 16:47 99 F 67 20 107/78 97 03/23/21 11:56 98.2 F 71 20 113/66 98 03/23/21 08:00 98.2 F 80 20 122/74 95 03/23/21 02:00 99.2 F 73 16 142/79 97 03/22/21 23:17 100.6 F H 66 18 134/69 96 03/22/21 20:00 98.2 F 82 18 125/86 98 Intake and Output 03/23/21 03/23/21 03/23/21 06:59 14:59 22:59 Intake Total 63.017 247.585 546.045 Balance 63.017 247.585 546.045 Intake: IV 31.38 Heparin Sod,Pork in 0.45% 31.38 NaCl 25,000 unit In 0.45 % NaCl 1 250ml.bag @ 12 UNITS/KG/HR 8.981 mls/hr IV .Q24H [facility] Rx#: [id number] Intake, IV Titration 63.017 67.585 334.665 Amount Azithromycin 500 mg In 250 Sodium Chloride 0.9% 250 ml @ 250 mls/hr IVPB DAILY [facility] Rx#:[id number] Heparin Sod,Pork in 0.45% 63.017 67.585 34.665 NaCl 25,000 unit In 0.45 % NaCl 1 250ml.bag @ 12 UNITS/KG/HR 8.981 mls/hr IV .Q24H [facility] Rx#: [id number] cefTRIAXone 1 gm In 50 Sodium Chloride 0.9% 50 ml @ 100 mls/hr IVPB DAILY [facility] Rx#:[id number] Oral 180 180 Other: Voiding Method Toilet # Voids 2 Weight 74.843 kg Results 03/23/21 10:23 03/22/21 12:55 Cardiac Enzymes 03/22/21 03/23/21 Range/Units 19:12 16:17 Lactate Dehydrogenase 391 (313-618) U/L Troponin I 0.016 (0.000-0.034) ng/mL Coagulation 03/22/21 03/23/21 03/23/21 Range/Units 23:05 10:23 16:17 PT 10.5 (9.0-12.0) sec APTT 119.5 H* 74.5 H 61.9 H (22.0-30.0) sec CBC 03/23/21 Range/Units 10:23 WBC 3.7 L (3.8-10.6) k/uL RBC 4.10 L (4.30-5.90) m/uL Hgb 12.0 L (13.0-17.5) gm/dL Hct 36.3 L (39.0-53.0) % Plt Count 166 (150-450) k/uL Current Medications Generic Name Dose Route Start Last Admin Trade Name Freq PRN Reason Stop Dose Admin Acetaminophen 650 mg 03/22/21 14:43 Acetaminophen Tab 325 Mg Tab PO Q6HR PRN Mild Pain or Fever > 100.5 Ascorbic Acid 500 mg 03/23/21 21:00 Ascorbic Acid 500 Mg Tab PO HS [facility] Aspirin 81 mg 03/23/21 11:30 03/23/21 12:29 Aspirin 81 Mg PO 81 mg DAILY [facility] Administration Atorvastatin Calcium 20 mg 03/26/21 21:00 Atorvastatin 20 Mg Tab PO TuTh@2100 [facility] Calcium Carbonate/Glycine 500 mg 03/23/21 21:00 Calcium Carbonate 500 Mg Chewable PO HS [facility] Cholecalciferol 25 mcg 03/23/21 21:00 Cholecalciferol 25 Mcg (1000 Iu) Tablet PO HS [facility] Clopidogrel Bisulfate 75 mg 03/23/21 11:30 03/23/21 12:29 Clopidogrel 75 Mg Tab PO 75 mg DAILY [facility] Administration Ezetimibe 10 mg 03/23/21 21:00 Ezetimibe 10 Mg Tab PO HS [facility] Heparin Sodium (Porcine) 0 unit 03/22/21 14:41 Heparin Sodium 1,000 Un/Ml (10ml Vl) IV PER PROTOCOL PRN Low PTT Protocol Heparin Sodium/Sodium Chloride 250 mls @ 8.981 mls/hr 03/22/21 14:45 03/23/21 17:47 25,000 unit/ Sodium Chloride IV 7 units/kg/hr .Q24H [facility] 5.239 mls/hr Administration Protocol 12 UNITS/KG/HR Ceftriaxone Sodium 1 gm/ 50 mls @ 100 mls/hr 03/23/21 09:00 03/23/21 09:00 Sodium Chloride IVPB 100 mls/hr DAILY [facility] Administration Azithromycin 500 mg/ Sodium 250 mls @ 250 mls/hr 03/23/21 09:00 03/23/21 11:02 Chloride IVPB 250 mls/hr DAILY [facility] Administration Latanoprost 1 drops 03/23/21 21:00 Latanoprost 0.005% Ophth Drops 2.5 Ml Btl BOTH EYES HS [facility] Levothyroxine Sodium 88 mcg 03/23/21 21:00 Levothyroxine 88 Mcg Tab PO HS [facility] Loratadine 10 mg 03/23/21 21:00 Loratadine 10 Mg Tab PO HS [facility] Losartan Potassium 50 mg 03/23/21 21:00 Losartan 50 Mg Tab PO HS [facility] Magnesium Oxide 400 mg 03/23/21 21:00 Magnesium Oxide 400 Mg Tab PO HS [facility] Multivitamins 1 each 03/23/21 21:00 Multivitamins, Thera 1 Each Tab PO HS [facility] Multivitamins/Minerals 1 each 03/23/21 21:00 Vit A,C & M-Jmlvgh-Lxtvkcpx 1 Each Tab PO HS [facility] Pantoprazole Sodium 40 mg 03/23/21 09:00 03/23/21 08:59 Pantoprazole 40 Mg/10 Ml Vial IV 40 mg DAILY [facility] Administration Zinc Sulfate 220 mg 03/23/21 15:45 03/23/21 17:47 Zinc Sulfate 220 Mg Cap PO 220 mg DAILY [facility] Administration Intake and Output 03/23/21 03/23/21 03/23/21 06:59 14:59 22:59 Intake Total 63.017 247.585 546.045 Balance 63.017 247.585 546.045 Intake: IV 31.38 Heparin Sod,Pork in 0.45% 31.38 NaCl 25,000 unit In 0.45 % NaCl 1 250ml.bag @ 12 UNITS/KG/HR 8.981 mls/hr IV .Q24H [facility] Rx#: [id number] Intake, IV Titration 63.017 67.585 334.665 Amount Azithromycin 500 mg In 250 Sodium Chloride 0.9% 250 ml @ 250 mls/hr IVPB DAILY [facility] Rx#:[id number] Heparin Sod,Pork in 0.45% 63.017 67.585 34.665 NaCl 25,000 unit In 0.45 % NaCl 1 250ml.bag @ 12 UNITS/KG/HR 8.981 mls/hr IV .Q24H [facility] Rx#: [id number] cefTRIAXone 1 gm In 50 Sodium Chloride 0.9% 50 ml @ 100 mls/hr IVPB DAILY [facility] Rx#:[id number] Oral 180 180 Other: Voiding Method Toilet # Voids 2 Weight 74.843 kg 03/23/21 10:23 03/22/21 12:55
[2021-03-23] MEDS ORDERED: LORATADINE 10 MG TAB PO SCH (21:00)
[2021-03-23] MEDS ORDERED: MULTIVITAMINS, THERA 1 EACH TAB PO SCH (21:00)
[2021-03-23] MEDS ORDERED: NON FORMULARY DRUG (Omega-3/Dha/Epa/Fish Oil [Fish Oil 500 Mg Softgel] 1 EACH Capsule) PO SCH (21:00)
[2021-03-23] MEDS ORDERED: ASCORBIC ACID 500 MG TAB PO SCH (21:00)
[2021-03-23] MEDS ORDERED: CHOLECALCIFEROL 25 MCG (1000 IU) TABLET PO SCH (21:00)
[2021-03-23] MEDS: EZETIMIBE 10 MG TAB PO SCH (21:34)
[2021-03-23] MEDS: LOSARTAN 50 MG TAB PO SCH (21:34)
[2021-03-23] MEDS: MAGNESIUM OXIDE 400 MG TAB PO SCH (21:34)
[2021-03-23] MEDS: VIT A,C & E-LUTEIN-MINERALS 1 EACH TAB PO SCH (21:34)
[2021-03-23] MEDS: LEVOTHYROXINE 88 MCG TAB PO SCH (21:36)
[2021-03-23] MEDS: LATANOPROST 0.005% OPHTH DROPS 2.5 ML BTL BOTH EYES SCH (21:36)
[2021-03-23] MEDS: CALCIUM CARBONATE 500 MG CHEWABLE PO SCH (21:36)
[2021-03-23] MEDS: APIXABAN 5 MG TAB PO SCH (21:36)
[2021-03-24] MEDS: APIXABAN 5 MG TAB PO SCH ×2 (08:30→20:50)
[2021-03-24] MEDS: ASPIRIN 81 MG PO SCH (08:31)
[2021-03-24] MEDS: LORATADINE 10 MG TAB PO SCH (08:31)
[2021-03-24] MEDS: ASCORBIC ACID 500 MG TAB PO SCH (08:31)
[2021-03-24] MEDS: CHOLECALCIFEROL 25 MCG (1000 IU) TABLET PO SCH (08:31)
[2021-03-24] MEDS: ZINC SULFATE 220 MG CAP PO SCH (08:31)
[2021-03-24] MEDS: PANTOPRAZOLE 40 MG/10 ML VIAL IV SCH (08:31)
[2021-03-24] MEDS: MULTIVITAMINS, THERA 1 EACH TAB PO SCH (08:31)
[2021-03-24 10:57] LABS: Basophils % (A) 0 %; Eosinophils % (A) 0 %; HCT 36.3 % (39.0-53.0); HGB 12.3 gm/dL (13.0-17.5); Lymphocytes # (A) 0.9 k/uL (1.0-4.8); Lymphocytes % (A) 20 %; MCH 29.8 pg (25.0-35.0); MCHC 33.9 g/dL (31.0-37.0); MCV 88.2 fL (80.0-100.0); Mean Platelet Volume 7.4; Monocytes # (A) 0.4 k/uL (0-1.0); Monocytes % (A) 9 %; Neutrophils % (A) 69 %; Platelet Count 163 k/uL (150-450); RBC 4.11 m/uL (4.30-5.90); RDW 14.3 % (11.5-15.5); WBC 4.4 k/uL (3.8-10.6)
[2021-03-24 11:17] LABS: ALT 19 U/L (4-49); AST 31 U/L (17-59); African American GFR (CKD) >90 (>60 ml/min/1.73 sqM); Albumin 3.1 g/dL (3.5-5.0); Alkaline Phosphatase 61 U/L (38-126); Anion Gap 5 mmol/L; Blood Urea Nitrogen 16 mg/dL (9-20); Calcium 8.2 mg/dL (8.4-10.2); Carbon Dioxide 27 mmol/L (22-30); Chloride 100 mmol/L (98-107); Glucose 112 mg/dL (74-99); Non-African American GFR(CKD) >90 (>60 ml/min/1.73 sqM); Potassium 4.3 mmol/L (3.5-5.1); Sodium 132 mmol/L (137-145); Total Bilirubin 0.2 mg/dL (0.2-1.3); Total Protein 5.6 g/dL (6.3-8.2)
[2021-03-24] MEDS: AZITHROMYCIN 500 MG in SODIUM CHLORIDE 0.9% 250 ML IVPB SCH (11:54)
--- NOTE | 2021-03-24 14:34 | P.PN ---
Subjective Progress Note Date: 03/24/21 Principal diagnosis: Questionable COVID-19 infection This is a 85-year-old white male patient who came into the emergency department on 03/22/2021 for evaluation of fatigue and hypotension at home. Patient had a systolic blood pressure in the 80s, he was seen by his primary care physician in the office he was found to have new onset atrial fibrillation, and he was sent into the emergency department for further evaluation and treatment. His vital signs in the emergency department were stable with a blood pressure 130/80, patient was afebrile, EKG revealed atrial fibrillation and nonspecific ST abnormality, with a controlled rate of 86 BPM, room air pulse ox was 98%, pat ient denied any respiratory difficulty, since 03/18/2021 patient thought he was having watery eyes, nasal congestion related to ALLERGIES. But denied any fever or chills, he does have a dry cough, but no bony aches, no nausea vomiting or diarrhea, he was started on Rocephin and azithromycin in the emergency department, his chest x-ray showed nonspecific right lower lobe infiltrate. His COVID-19 test was positive. He is currently being retested with another PCR test. He states otherwise he is feeling good, his tested herself at home and she was negative. Apparently patient's grandson tested positive at work, he is asymptomatic, but he undergoes frequent testing for work requirement. Grandson was retested and he was told that he had a false positive test. Currently patient is asymptomatic, other than having a dry cough. Today's labs have been reviewed showing white blood cell count of 3.7, hemoglobin is 12. He is on heparin infusion for new onset atrial fibrillation. His other medical history is coronary artery disease, with previous history of bypass grafting, hypertension, hyperlipidemia, hypothyroidism, previous history of abdominal aortic aneurysm, and osteoarthritis. Patient is a lifetime nonsmoker, no history of chronic lung disease. On 03/24/2021 patient seen in follow-up on selective care unit, he is awake and alert, resting comfortably in bed, he is on room air, with pulse ox of 94-97%, no cough, no chest discomfort, no shortness of breath, no fever or chills, no arthralgias. Vital signs have been stable, his repeat COVID-19 PCR was again po sitive, confirming COVID-19 infection without significant pulmonary symptoms. No hypoxia, he has been started on oral Eliquis for new onset atrial fibrillation, his heart rate is controlled. The rest of blood work has been reviewed, his white blood cell count is 4.4, hemoglobin is 12.3, lymphocyte count is 0.9, d-dimer is 0.45, sodium is 132, direct infection lites and renal profile were unremarkable. His LDH was within normal limits at 391, and CRP was 3.3, pro-calcitonin level was negative, and antibiotics will be discontinued. Objective - Vital Signs Vital signs: Vital Signs Temp 98.0 F 03/24/21 08:20 Pulse 86 03/24/21 11:47 Resp 18 03/24/21 11:47 BP 117/67 03/24/21 11:47 Pulse Ox 94 L 03/24/21 11:47 Intake & Output 03/23/21 03/24/21 03/24/21 19:59 06:59 18:59 Intake Total 180 Balance 180 Intake: IV Heparin Sod,Pork in 0.45% NaCl 25,000 unit In 0.45 % NaCl 1 250ml.bag @ 12 UNITS/KG/HR 8.981 mls/hr IV .Q24H [facility] Rx#: [id number] Intake, IV Titration Amount Azithromycin 500 mg In Sodium Chloride 0.9% 250 ml @ 250 mls/hr IVPB DAILY [facility] Rx#:[id number] Heparin Sod,Pork in 0.45% NaCl 25,000 unit In 0.45 % NaCl 1 250ml.bag @ 12 UNITS/KG/HR 8.981 mls/hr IV .Q24H [facility] Rx#: [id number] cefTRIAXone 1 gm In Sodium Chloride 0.9% 50 ml @ 100 mls/hr IVPB DAILY [facility] Rx#:[id number] Oral 180 Other: Voiding Method Toilet # Voids - Exam GENERAL EXAM: Alert, very pleasant, 85-year-old white male, on room air, pulse ox of 98% comfortable in no apparent distress. HEAD: Normocephalic/atraumatic. EYES: Normal reaction of pupils, equal size. Conjunctiva pink, sclera white. NOSE: Clear with pink turbinates. THROAT: No erythema or exudates. NECK: No masses, no JVD, no thyroid enlargement, no adenopathy. CHEST: No chest wall deformity. Symmetrical expansion. LUNGS: Equal air entry with bibasilar rales CVS: Regular rate and rhythm, normal S1 and S2, no gallops, no murmurs, no rubs ABDOMEN: Soft, nontender. No hepatosplenomegaly, normal bowel sounds, no guarding or rigidity. EXTREMITIES: No clubbing, no edema, no cyanosis, 2+ pulses and upper and lower extremities. MUSCULOSKELETAL: Muscle strength and tone normal. SPINE: No scoliosis or deformity SKIN: No rashes CENTRAL NERVOUS SYSTEM: Alert and oriented -3. No focal deficits, tone is normal in all 4 extremities. PSYCHIATRIC: Alert and oriented -3. Appropriate affect. Intact judgment and insight. - Labs CBC & Chem 7: 03/24/21 10:33 03/24/21 10:33 Labs: Abnormal Lab Results - Last 24 Hours (Table) 03/23/21 03/23/21 03/23/21 Range/Units 14:35 16:17 16:17 RBC (4.30-5.90) m/uL Hgb (13.0-17.5) gm/dL Hct (39.0-53.0) % Lymphocytes # (1.0-4.8) k/uL APTT 61.9 H (22.0-30.0) sec Sodium (137-145) mmol/L Creatinine (0.66-1.25) mg/dL Glucose (74-99) mg/dL Calcium (8.4-10.2) mg/dL C-Reactive Protein 3.3 H (<1.0) mg/dL Total Protein (6.3-8.2) g/dL Albumin (3.5-5.0) g/dL Coronavirus (PCR) Detected A (Not Detected) 03/24/21 03/24/21 Range/Units 10:33 10:33 RBC 4.11 L (4.30-5.90) m/uL Hgb 12.3 L (13.0-17.5) gm/dL Hct 36.3 L (39.0-53.0) % Lymphocytes # 0.9 L (1.0-4.8) k/uL APTT (22.0-30.0) sec Sodium 132 L (137-145) mmol/L Creatinine 0.65 L (0.66-1.25) mg/dL Glucose 112 H (74-99) mg/dL Calcium 8.2 L (8.4-10.2) mg/dL C-Reactive Protein (<1.0) mg/dL Total Protein 5.6 L (6.3-8.2) g/dL Albumin 3.1 L (3.5-5.0) g/dL Coronavirus (PCR) (Not Detected) Assessment and Plan Plan: assessment: #1. COVID-19 infection, without significant pulmonary symptoms, and no hypoxia, this was an incidental finding during evaluation for new onset A. fib. Repeat COVID 19 PCR was again positive. chest x-ray showed right lower lobe infiltrate which is nonspecific. patient reports constitutional symptoms of fatigue at home. Patient was vaccinated for COVID-19 #2. New Onset A. fib, the rate is controlled, patient has been started on Eliquis for anticoagulation #3. history of coronary artery disease, with history of bypass grafting and coronary artery stenting #4. Hypertension #5. Hyperlipidemia #6. lifetime nonsmoker #7. Previous history of myocardial infarction 20 years ago Plan: Repeat COVID-19 PCR was again positive Patient is still on room air, is not having any dyspnea, does have a mild dry cough No need for Decadron or Remdesivir He is ready on oral anticoagulation for new onset atrial fibrillation Inflammatory markers are not significantly elevated, d-dimer is normal Patient was vaccinated for COVID-19 We'll continue to monitor his pulmonary status for worsening hypoxia or dyspnea If remains stable and has been cleared by cardiology, patient may be considered for discharge home on supportive treatment with vitamins C, D and zinc Pro calcitonin level was low, we will discontinue azithromycin and Rocephin I performed a history & physical examination of the patient and discussed their management with my nurse practitioner, Deann Johnson. I reviewed the nurse practitioner's note and agree with the documented findings and plan of care. Lung sounds are positive for diffuse bibasilar crackles throughout the lung hamlin. The findings and the impression was discussed with the patient. I attest to the documentation by the nurse practitioner. Time with Patient: Less than 30
[2021-03-24] MEDS: MAGNESIUM OXIDE 400 MG TAB PO SCH (20:49)
[2021-03-24] MEDS: EZETIMIBE 10 MG TAB PO SCH (20:50)
[2021-03-24] MEDS: LOSARTAN 50 MG TAB PO SCH (20:50)
[2021-03-24] MEDS: VIT A,C & E-LUTEIN-MINERALS 1 EACH TAB PO SCH (20:50)
[2021-03-24] MEDS: LEVOTHYROXINE 88 MCG TAB PO SCH (20:50)
[2021-03-24] MEDS: CALCIUM CARBONATE 500 MG CHEWABLE PO SCH (20:50)
[2021-03-24] MEDS: LATANOPROST 0.005% OPHTH DROPS 2.5 ML BTL BOTH EYES SCH (20:50)
[2021-03-25] MEDS ORDERED: PANTOPRAZOLE 40 MG TABLET PO SCH (07:30)
[2021-03-25] MEDS: ASPIRIN 81 MG PO SCH (07:54)
[2021-03-25] MEDS: APIXABAN 5 MG TAB PO SCH (07:54)
[2021-03-25] MEDS: ASCORBIC ACID 500 MG TAB PO SCH (07:54)
[2021-03-25] MEDS: ZINC SULFATE 220 MG CAP PO SCH (07:54)
[2021-03-25] MEDS: CHOLECALCIFEROL 25 MCG (1000 IU) TABLET PO SCH (07:55)
[2021-03-25] MEDS: LORATADINE 10 MG TAB PO SCH (07:55)
[2021-03-25] MEDS: MULTIVITAMINS, THERA 1 EACH TAB PO SCH (07:55)
[2021-03-25 08:01] VITALS: BP 113/63; PULSE 90; RESP 18; TEMP 98.7
--- NOTE | 2021-03-25 11:15 | P.PN ---
Subjective Progress Note Date: 03/25/21 This is a 85-year-old white male patient who came into the emergency department on 03/22/2021 for evaluation of fatigue and hypotension at home. Patient had a systolic blood pressure in the 80s, he was seen by his primary care physician in the office he was found to have new onset atrial fibrillation, and he was sent into the emergency department for further evaluation and treatment. His vital signs in the emergency department were stable with a blood pressure 130/80, patient was afebrile, EKG revealed atrial fibrillation and nonspecific ST abnormality, with a controlled rate of 86 BPM, room air pulse ox was 98%, patient denied any respiratory difficulty, since 03/18/2021 patient thought he was having watery eyes, nasal congestion related to ALLERGIES. But denied any fever or chills, he does have a dry cough, but no bony aches, no nausea vomiting or diarrhea, he was started on Rocephin and azithromycin in the emergency department, his chest x-ray showed nonspecific right lower lobe infiltrate. His COVID-19 test was positive. He is currently being retested with another PCR test. He states otherwise he is feeling good, his tested herself at home and she was negative. Apparently patient's grandson tested positive at work, he is asymptomatic, but he undergoes frequent testing for work requirement. Grandson was retested and he was told that he had a false positive test. Currently patient is asymptomatic, other than having a dry cough. Today's labs have been reviewed showing white blood cell count of 3.7, hemoglobin is 12. He is on heparin infusion for new onset atrial fibrillation. His other medical history is coronary artery disease, with previous history of bypass grafting, hypertension, hyperlipidemia, hypothyroidism, previous history of abdominal aortic aneurysm, and osteoarthritis. Patient is a lifetime nonsmoker, no history of chronic lung disease. On 03/24/2021 patient seen in follow-up on selective care unit, he is awake and alert, resting comfortably in bed, he is on room air, with pulse ox of 94-97%, no cough, no chest discomfort, no shortness of breath, no fever or chills, no arthralgias. Vital signs have been stable, his repeat COVID-19 PCR was again positive, confirming COVID-19 infection without significant pulmonary symptoms. No hypoxia, he has been started on oral Eliquis for new onset atrial fibrillation, his heart rate is controlled. The rest of blood work has been reviewed, his white blood cell count is 4.4, hemoglobin is 12.3, lymphocyte count is 0.9, d-dimer is 0.45, sodium is 132, direct infection lites and renal profile were unremarkable. His LDH was within normal limits at 391, and CRP was 3.3, pro-calcitonin level was negative, and antibiotics will be discontinued. 03/25/2021, the patient remains stable on room air oxygen. We opted not to treat this patient as the colon 1919 was essentially incidental. The patient is in for a chief fibrillation. His rate is controlled. On room air oxygen. In terms of blood work, his white cell count from yesterday was 4.4, he did have some mild lymphopenia. His electrolytes were normal, d-dimer was at 0.45, LDH level was essentially normal. In terms of drugs, the patient is being managed as atrial fibrillation. He is on Eliquis 5 mg by mouth twice a day Objective - Vital Signs Vital signs: Vital Signs Temp 98.7 F 03/25/21 07:59 Pulse 90 03/25/21 07:59 Resp 18 03/25/21 07:59 BP 113/63 03/25/21 07:59 Pulse Ox 95 03/25/21 07:59 Intake & Output 03/24/21 03/25/21 03/25/21 18:59 06:59 18:59 Intake Total 360 660 Balance 360 660 Intake: Oral 360 660 Other: Voiding Method Toilet Toilet Toilet # Voids 1 - Exam GENERAL EXAM: Alert, very pleasant, 85-year-old white male, on room air, pulse ox of 98% comfortable in no apparent distress. HEAD: Normocephalic/atraumatic. EYES: Normal reaction of pupils, equal size. Conjunctiva pink, sclera white. NOSE: Clear with pink turbinates. THROAT: No erythema or exudates. NECK: No masses, no JVD, no thyroid enlargement, no adenopathy. CHEST: No chest wall deformity. Symmetrical expansion. LUNGS: Equal air entry with bibasilar rales CVS: Regular rate and rhythm, normal S1 and S2, no gallops, no murmurs, no rubs ABDOMEN: Soft, nontender. No hepatosplenomegaly, normal bowel sounds, no guarding or rigidity. EXTREMITIES: No clubbing, no edema, no cyanosis, 2+ pulses and upper and lower extremities. MUSCULOSKELETAL: Muscle strength and tone normal. SPINE: No scoliosis or deformity SKIN: No rashes CENTRAL NERVOUS SYSTEM: Alert and oriented -3. No focal deficits, tone is normal in all 4 extremities. PSYCHIATRIC: Alert and oriented -3. Appropriate affect. Intact judgment and insight. - Labs CBC & Chem 7: 03/24/21 10:33 03/24/21 10:33 Labs: Abnormal Lab Results - Last 24 Hours (Table) 03/23/21 03/24/21 Range/Units 14:35 10:33 Sodium 132 L (137-145) mmol/L Creatinine 0.65 L (0.66-1.25) mg/dL Glucose 112 H (74-99) mg/dL Calcium 8.2 L (8.4-10.2) mg/dL Total Protein 5.6 L (6.3-8.2) g/dL Albumin 3.1 L (3.5-5.0) g/dL Coronavirus (PCR) Detected A (Not Detected) Assessment and Plan Plan: #1. COVID-19 infection, without significant pulmonary symptoms, and no hypoxia, this was an incidental finding during evaluation for new onset A. fib. Repeat COVID 19 PCR was again positive. chest x-ray showed right lower lobe infiltrate which is nonspecific. patient reports constitutional symptoms of fatigue at home. Patient was vaccinated for COVID-19 #2. New onset A. fib, the rate is controlled, patient has been started on Eliquis for anticoagulation, rate is controlled #3 coronary artery disease, with history of bypass grafting and coronary artery stenting #4 Hypertension #5 Hyperlipidemia #6 lifetime nonsmoker #7. Previous history of myocardial infarction 20 years ago Plan: Patient is still on room air, No need for Decadron or Remdesivir The patient has limited infiltration of the lung bases bilaterally and some coarse crackles. Nevertheless, he is asymptomatic and is on room air oxygen and his remains stable. His cardiac rhythm is still atrial fibrillation. He is ready on oral anticoagulation for new onset atrial fibrillation Inflammatory markers are not significantly elevated, d-dimer is normal Patient was vaccinated for COVID-19 We'll continue to monitor his pulmonary status for worsening hypoxia or dyspnea May potentially discharged home once cleared by cardiology to be followed up with us on outpatient basis
--- NOTE | 2021-03-25 13:40 | P.PN ---
Subjective Progress Note Date: 03/24/21 Mrogan Avendano, is an 85-year-old male who presented to [facility] emergency room with a chief complaint of fatigue and hypotension at home, patient had a systolic blood pressure in the 80s, he was seen by his primary care physician who advised him to go to emergency room. He was evaluated in the emergency room vital examination on presentation revealed a temperature of 97.9 pulse 86 respiration 18 blood pressure 130/80 and pulse ox of 98% Laboratory data revealed a white blood count of 5.0 hemoglobin 13.3 platelet count 174 sodium 131 potassium 4.4 chloride 97 BUN 19 creatinine 0.69 coronavirus PCR was positive Testing in the emergency room revealed, chest x-ray done in the emergency room revealed right lower lobe infiltrate, EKG revealed evidence of atrial fibrillation which is new for patient, and nonspecific ST abnormality, he was started Patient was admitted to medical floor for further evaluation and treatment, he was started on IV Rocephin and Zithromax in the emergency room, in regard to right lower lobe infiltrate and IV heparin in regard to atrial fibrillation. Past medical history is significant for history of hypertension, history of hypothyroidism, history of hyperlipidemia, history of coronary artery disease, history of abdominal aortic aneurysm, history of osteoarthritis On review of systems patient is alert and oriented 3 very pleasant in no apparent distress he denies any fever or chills no headache or dizziness no chest pain no shortness of breath no cough no nausea or vomiting no abdominal pain no diarrhea no blood in the stools no burning with urination no frequency or urgency and no hematuria shortness or numbness in any of his extremities no change in vision or speech or gait. On 03/24/2021 patient was seen and examined on the medical floor he is alert and oriented 3 in no apparent distress there is no fever or chills no headache or d izziness no chest pain no shortness of breath no cough no nausea or vomiting no abdominal pain no diarrhea and no urinary symptoms. Admission COVID-19 testing was positive repeat COVID-19 testing PCR is still pending Objective - Vital Signs Vital signs: Vital Signs Temp 98.7 F 03/25/21 07:59 Pulse 90 03/25/21 07:59 Resp 18 03/25/21 07:59 BP 113/63 03/25/21 07:59 Pulse Ox 95 03/25/21 07:59 Intake & Output 03/24/21 03/25/21 03/25/21 18:59 06:59 18:59 Intake Total 360 660 Balance 360 660 Intake: Oral 360 660 Other: Voiding Method Toilet Toilet Toilet # Voids 1 - Exam In general patient is alert and oriented x 3 in no distress HEENT head normocephalic and atraumatic Neck is supple no JVD no goiter no lymphadenopathy no carotid bruit Chest examination is clear to auscultation no crackles no wheezing Cardiac exam reveals regular heart sounds S1 and S2 no gallops no murmurs Abdomen is soft nontender no organomegaly with normal bowel sounds Extremity exam reveals no edema no cyanosis or clubbing Neurological examination reveals no gross focal deficits - Labs CBC & Chem 7: 03/24/21 10:33 03/24/21 10:33 Labs: Abnormal Lab Results - Last 24 Hours (Table) 03/23/21 03/24/21 03/24/21 Range/Units 14:35 10:33 10:33 RBC 4.11 L (4.30-5.90) m/uL Hgb 12.3 L (13.0-17.5) gm/dL Hct 36.3 L (39.0-53.0) % Lymphocytes # 0.9 L (1.0-4.8) k/uL Sodium 132 L (137-145) mmol/L Creatinine 0.65 L (0.66-1.25) mg/dL Glucose 112 H (74-99) mg/dL Calcium 8.2 L (8.4-10.2) mg/dL Total Protein 5.6 L (6.3-8.2) g/dL Albumin 3.1 L (3.5-5.0) g/dL Coronavirus (PCR) Detected A (Not Detected) Assessment and Plan Plan: 1. Right lower lobe infiltrate possible pneumonia and started on IV Rocephin and IV Zithromax in the emergency room 2. New-onset atrial fibrillation, heart rate is well-controlled patient was started on IV heparin in the emergency room 3. Positive coronavirus PCR testing in the emergency room, patient is doubting results and asking for repeat testing 4. Underlying history of hypertension 5. Underlying history of hyperlipidemia 6. Underlying history of hypothyroidism 7. Underlying history of coronary artery disease with previous history of cardiac catheterization with angioplasty and stent placement and history of coronary artery bypass graft surgery 8. Underlying history of osteoarthritis. At this time patient is admitted to telemetry floor He was started on IV heparin, IV Rocephin and Zithromax Home medications reviewed and reordered Cardiology consultation was requested in the emergency room Pulmonary consultation was added due to abnormal chest x-ray was possible pneumonia and positive coronavirus PCR testing Will follow closely
--- NOTE | 2021-03-25 13:44 | P.DS ---
Providers Date of admission: 03/22/21 14:53 Expected date of discharge: 03/25/21 Attending physician: Stevan Botello Consults: 03/23/21 13:53 Consult Physician Routine Consulting Provider: Christiano Gordillo Consult Reason/Comments: Pneumonia, positive coronavirus PCR Do you want consulting provider notified?: Yes Primary care physician: Tamica [facility] Course: Diagnosis on discharge: 1. Right lower lobe infiltrate possible pneumonia and started on IV Rocephin and IV Zithromax in the emergency room, after review by pulmonary antibiotics were discontinued 2. New-onset atrial fibrillation, heart rate is well-controlled patient was started on IV heparin in the emergency room 3. Positive coronavirus PCR testing in the emergency room, patient is doubting results and asking for repeat testing 4. Underlying history of hypertension 5. Underlying history of hyperlipidemia 6. Underlying history of hypothyroidism 7. Underlying history of coronary artery disease with previous history of cardiac catheterization with angioplasty and stent placement and history of coronary artery bypass graft surgery 8. Underlying history of osteoarthritis. Hospital course: Morgan Avendano, is an 85-year-old male who presented to [facility] emergency room with a chief complaint of fatigue and hypotension at home, patient had a systolic blood pressure in the 80s, he was seen by his primary care physician who advised him to go to emergency room. He was evaluated in the emergency room vital examination on presentation revealed a temperature of 97.9 pulse 86 respiration 18 blood pressure 130/80 and pulse ox of 98% Laboratory data revealed a white blood count of 5.0 hemoglobin 13.3 platelet count 174 sodium 131 potassium 4.4 chloride 97 BUN 19 creatinine 0.69 coronavirus PCR was positive Testing in the emergency room revealed, chest x-ray done in the emergency room revealed right lower lobe infiltrate, EKG revealed evidence of atrial fibrillation which is new for patient, and nonspecific ST abnormality, he was started Patient was admitted to medical floor for further evaluation and treatment, he was started on IV Rocephin and Zithromax in the emergency room, in regard to right lower lobe infiltrate and IV heparin in regard to atrial fibrillation. Past medical history is significant for history of hypertension, history of hypothyroidism, history of hyperlipidemia, history of coronary artery disease, history of abdominal aortic aneurysm, history of osteoarthritis On review of systems patient is alert and oriented 3 very pleasant in no apparent distress he denies any fever or chills no headache or dizziness no chest pain no shortness of breath no cough no nausea or vomiting no abdominal pain no diarrhea no blood in the stools no burning with urination no frequency or urgency and no hematuria shortness or numbness in any of his extremities no change in vision or speech or gait. On 03/24/2021 patient was seen and examined on the medical floor he is alert and oriented 3 in no apparent distress there is no fever or chills no headache or dizziness no chest pain no shortness of breath no cough no nausea or vomiting no abdominal pain no diarrhea and no urinary symptoms. Admission COVID-19 testing was positive repeat COVID-19 testing PCR is still pending On 03/25/2021 Patient was seen and examined on the medical floor, he is alert and oriented x 3 in no distress, he denies any complaints there is no fever or chills no headache or dizziness no chest pain no shortness of breath no palpitation no cough no nausea or vomiting no abdominal pain no diarrhea no blood in the stools no burning with urination no frequency or urgency and no hematuria, there is no weakness or numbness in any of the extremities no change in vision speech or gait. During this admission, Plavix was discontinued and Eliquis 5 mg by mouth twice a day was added to her medication regimen. No need for antibiotic for pulmonary No need for any treatment for COVID-19 for pulmonary, patient is asymptomatic He will be discharged to home today he was instructed to return to emergency room if having difficulty breathing or fever or cough Patient Condition at Discharge: Fair Plan - Discharge Summary Discharge Rx Participant: No New Discharge Prescriptions: New Apixaban [Eliquis] 5 mg PO BID tab Zinc Sulfate [Orazinc] 220 mg PO DAILY cap Continue Levothyroxine Sodium [Synthroid] 88 mcg PO HS Rosuvastatin [Crestor] 10 mg PO TUTH Ascorbic Acid [Vitamin C] 500 mg PO HS Multivitamins, Thera [Multivitamin (formulary)] 1 tab PO HS Aspirin 81 mg PO DAILY Magnesium With B-Complex 1 tab PO HS Ezetimibe [Zetia] 10 mg PO HS Losartan Potassium 50 mg PO HS Latanoprost [Xalatan 0.005%] 1 drop BOTH EYES HS Calcium Carbonate [Calcium] 600 mg PO HS [place]-3/Dha/Epa/Fish Oil [Fish Oil 500 mg Softgel] 1 cap PO HS Cholecalciferol [Vitamin D3 (25 Mcg = 1000 Iu)] 25 mcg PO HS Loratadine [Claritin] 10 mg PO HS Vit C/E/Zn/Coppr/Lutein/Zeaxan [Preservision Areds 2 Softgel] 1 cap PO HS Discontinued Clopidogrel [Plavix] 75 mg PO DAILY Discharge Medication List Ascorbic Acid [Vitamin C] 500 mg PO HS 03/22/21 [History] Aspirin 81 mg PO DAILY 03/22/21 [History] Calcium Carbonate [Calcium] 600 mg PO HS 03/22/21 [History] Cholecalciferol [Vitamin D3 (25 Mcg = 1000 Iu)] 25 mcg PO HS 03/22/21 [History] Ezetimibe [Zetia] 10 mg PO HS 03/22/21 [History] Latanoprost [Xalatan 0.005%] 1 drop BOTH EYES HS 03/22/21 [History] Levothyroxine Sodium [Synthroid] 88 mcg PO HS 03/22/21 [History] Loratadine [Claritin] 10 mg PO HS 03/22/21 [History] Losartan Potassium 50 mg PO HS 03/22/21 [History] Magnesium With B-Complex 1 tab PO HS 03/22/21 [History] Multivitamins, Thera [Multivitamin (formulary)] 1 tab PO HS 03/22/21 [History] [place]-3/Dha/Epa/Fish Oil [Fish Oil 500 mg Softgel] 1 cap PO HS 03/22/21 [History] Rosuvastatin [Crestor] 10 mg PO TUTH 03/22/21 [History] Vit C/E/Zn/Coppr/Lutein/Zeaxan [Preservision Areds 2 Softgel] 1 cap PO HS 03/22/21 [History] Apixaban [Eliquis] 5 mg PO BID tab 03/25/21 [Rx] Zinc Sulfate [Orazinc] 220 mg PO DAILY cap 03/25/21 [Rx] Follow up Appointment(s)/Referral(s): Tamica Trujillo MD [Primary Care Provider] - 1-2 days
[2021-03-26] MEDS ORDERED: ATORVASTATIN 20 MG TAB PO SCH (21:00)
== END 2021-03-25 15:38 | disposition home or self-care (01) ==
LOC: EC 12:04 → 4SSUR 14:53 → 3SCARD 15:54
PROVIDERS: ADMIT Internal Medicine; ATTEND Internal Medicine
DX: U07.1 COVID-19 (principal); R91.8 Other nonspecific abnormal finding of lung field; I10 Essential (primary) hypertension; M19.90 Unspecified osteoarthritis, unspecified site; I48.91 Unspecified atrial fibrillation; I25.10 Atherosclerotic heart disease of native coronary artery without angina pectoris; E78.5 Hyperlipidemia, unspecified; I25.2 Old myocardial infarction; E87.8 Other disorders of electrolyte and fluid balance, not elsewhere classified; E87.1 Hypo-osmolality and hyponatremia; D72.810 Lymphocytopenia; E03.9 Hypothyroidism, unspecified; I95.9 Hypotension, unspecified; R00.2 Palpitations; I65.29 Occlusion and stenosis of unspecified carotid artery; Z79.01 Long term (current) use of anticoagulants; Z79.02 Long term (current) use of antithrombotics/antiplatelets; Z79.82 Long term (current) use of aspirin; Z79.890 Hormone replacement therapy; Z79.899 Other long term (current) drug therapy; Z95.5 Presence of coronary angioplasty implant and graft; Z95.1 Presence of aortocoronary bypass graft; Z86.79 Personal history of other diseases of the circulatory system
CPT/HCPCS: 99285; 96376; 96366 ×3; 96375 ×2; 96368; 96365; 96367; 36415; 93005; 85379; 80053 ×2; 83615; 83735; 84443; 84484; 85025 ×3; 85610 ×2; 85730 ×3; 86140; 81001; 84145; 87635; 71046; G0378 ×5; U0003; U0005; J0456 ×2; J0696 ×3; J1644 ×3; C9113 ×2

== ENCOUNTER 2023-07-24 03:33 | Inpatient (IN) | payer MEDICARE ==
[2023-07-24 04:39] LABS: Basophils % (A) 0 %; Eosinophils % (A) 0 %; HCT 42.4 % (39.0-53.0); Lymphocytes # (A) 1.2 k/uL (1.0-4.8); Lymphocytes % (A) 10 %; MCH 30.1 pg (25.0-35.0); MCHC 32.9 g/dL (31.0-37.0); MCV 91.4 fL (80.0-100.0); Mean Platelet Volume 8.2; Monocytes # (A) 0.6 k/uL (0-1.0); Monocytes % (A) 5 %; Neutrophils # (A) 10.8 k/uL (1.3-7.7); Neutrophils % (A) 83 %; Platelet Count 180 k/uL (150-450); RBC 4.64 m/uL (4.30-5.90); RDW 14.2 % (11.5-15.5); WBC 12.9 k/uL (3.8-10.6)
[2023-07-24 04:49] LABS: ALT 25 U/L (4-49); African American GFR (CKD) >90 (>60 ml/min/1.73 sqM); Albumin 4.3 g/dL (3.5-5.0); Anion Gap 11 mmol/L; Blood Urea Nitrogen 37 mg/dL (9-20); Carbon Dioxide 25 mmol/L (22-30); Chloride 102 mmol/L (98-107); Glucose 163 mg/dL (74-99); Non-African American GFR(CKD) >90 (>60 ml/min/1.73 sqM); Sodium 138 mmol/L (137-145); Total Bilirubin 0.9 mg/dL (0.2-1.3); Total Protein 7.1 g/dL (6.3-8.2)
[2023-07-24 05:02] LABS: AST 42 U/L (17-59); Alkaline Phosphatase 84 U/L (38-126); Potassium 4.5 mmol/L (3.5-5.1)
[2023-07-24 05:03] LABS: Lipase 3112 U/L (23-300)
[2023-07-24] MEDS: MORPHINE SULFATE 4 MG/ML SYRINGE IVP STA (05:34)
[2023-07-24] MEDS: SODIUM CHLORIDE 0.9% 1,000 ML IV SCH (05:34)
[2023-07-24] MEDS: ONDANSETRON 4 MG/2 ML VIAL IVP STA (05:34)
--- NOTE | 2023-07-24 05:42 | XR ---
EXAM: XR Abdomen, 1 View CLINICAL HISTORY: ITS.REASON XR Reason: constipation TECHNIQUE: Frontal supine view of the abdomen/pelvis. COMPARISON: No relevant prior studies available. IMPRESSION: 1. Evaluation for free air is limited by supine imaging. 2. Findings suspicious for small bowel obstruction. Dilated small bowel loops measure up to 4.[address] evaluation with oral contrast.
--- NOTE | 2023-07-24 05:45 | CT ---
EXAM: CT Abdomen and Pelvis Without Intravenous Contrast CLINICAL HISTORY: ITS.REASON CT Reason: abdominal pain TECHNIQUE: Axial computed tomography images of the abdomen and pelvis without intravenous contrast. CTDI is 12.9 mGy and DLP is 779 mGy-cm. This CT exam was performed using one or more of the following dose reduction techniques: automated exposure control, adjustment of the mA and/or kV according to patient size, and/or use of iterative reconstruction technique. COMPARISON: No relevant prior studies available. FINDINGS: Limitations: Limited examination in the absence of contrast. Lung bases: Dependent scarring at the lung bases with bronchiectasis. Findings may be due to infection/aspiration changes. ABDOMEN: Liver: Unremarkable. Gallbladder and bile ducts: Unremarkable. No calcified stones. No ductal dilation. Pancreas: Unremarkable. No ductal dilation. Spleen: Unremarkable. No splenomegaly. Adrenals: Unremarkable. No mass. Kidneys and ureters: No evidence of obstructive renal calculi or signs of collecting system dilatation. Nonobstructive calculus in the inferior pole of the right kidney measuring up to 9 mm. Simple right renal cyst. No follow-up of this simple cyst is necessary. Stomach and bowel: Small bowel obstruction. Small bowel loops measure up to 4.6 cm. Transition point is poorly identified but suspected be within the right hemiabdomen. Colonic diverticulosis. No evidence of diverticulitis. PELVIS: Appendix: No findings to suggest acute appendicitis. Bladder: Unremarkable. No stones. Reproductive: Unremarkable as visualized. ABDOMEN and PELVIS: Intraperitoneal space: Unremarkable. No free air. No significant fluid collection. Bones/joints: Degenerative changes in the spine. 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 No acute fracture. No dislocation. Soft tissues: Unremarkable. Vasculature: Atherosclerotic disease. No abdominal aortic aneurysm. Lymph nodes: Unremarkable. No enlarged lymph nodes. IMPRESSION: 1. Limited examination in the absence of contrast. 2. Small bowel obstruction. Small bowel loops measure up to 4.6 cm. Transition point is poorly identified but suspected be within the right hemiabdomen. 3. No evidence of pneumatosis, portal venous gas, or free air. 4. No evidence of obstructive renal calculi or signs of collecting system dilatation. 5. Nonobstructive calculus in the inferior pole of the right kidney measuring up to 9 mm. 6. No other acute findings. 7. Incidental findings as described.
[2023-07-24] MEDS ORDERED: MORPHINE SULFATE 4 MG/ML SYRINGE IV PRN (05:53)
[2023-07-24] MEDS ORDERED: NALOXONE 0.4 MG/ML 1 ML VIAL IV PRN (05:53)
--- NOTE | 2023-07-24 06:03 | ED ---
Abdominal Pain HPI - General Chief Complaint: Abdominal Pain Stated Complaint: abd pain Time Seen by Provider: 07/24/23 03:41 Source: EMS Mode of arrival: EMS - History of Present Illness Initial Comments: Morgan is an 88-year-old gentleman who presents the ER today for evaluation of abdominal distention and feeling of constipation. Patient reports he just feels like he cannot have a bowel movement or pass gas and he needs to. Patient states that he did have a small bowel movement yesterday evening but it did not relieve any of his discomfort. Patient reports previous appendectomy about 70 years ago and previous cholecystectomy no recent surgeries no history of inflammatory or irritable bowel disease. No history of small bowel obstruction. - Related Data Home Medications Medication Instructions Recorded Confirmed Ascorbic Acid [Vitamin C] 500 mg PO HS 03/22/21 03/22/21 Aspirin 81 mg PO DAILY 03/22/21 03/22/21 Calcium Carbonate [Calcium] 600 mg PO HS 03/22/21 03/22/21 Cholecalciferol [Vitamin D3 (25 25 mcg PO HS 03/22/21 03/22/21 Mcg = 1000 Iu)] Ezetimibe [Zetia] 10 mg PO HS 03/22/21 03/22/21 Latanoprost [Xalatan 0.005%] 1 drop BOTH EYES HS 03/22/21 03/22/21 Levothyroxine Sodium [Synthroid] 88 mcg PO HS 03/22/21 03/22/21 Loratadine [Claritin] 10 mg PO HS 03/22/21 03/22/21 Losartan Potassium 50 mg PO HS 03/22/21 03/22/21 Magnesium With B-Complex 1 tab PO HS 03/22/21 03/22/21 Multivitamins, Thera [Multivitamin 1 tab PO HS 03/22/21 03/22/21 (formulary)] [place]-3/Dha/Epa/Fish Oil [Fish Oil 1 cap PO HS 03/22/21 03/22/21 500 mg Softgel] Rosuvastatin [Crestor] 10 mg PO TUTH 03/22/21 03/22/21 Vit C/E/Zn/Coppr/Lutein/Zeaxan 1 cap PO HS 03/22/21 03/22/21 [Preservision Areds 2 Softgel] Previous Rx's Medication Instructions Recorded Apixaban [Eliquis] 5 mg PO BID tab 03/25/21 Zinc Sulfate [Orazinc] 220 mg PO DAILY cap 03/25/21 Allergies Allergy/AdvReac Type Severity Reaction Status Date / Time No Known Allergies Allergy Verified 07/24/23 03:43 Review of Systems ROS Statement: Those systems with pertinent positive or pertinent negative responses have been documented in the HPI. ROS Other: All systems not noted in ROS Statement are negative. Past Medical History Past Medical History: Coronary Artery Disease (CAD), Hyperlipidemia, Hypertension History of Any Multi-Drug Resistant Organisms: None Reported Past Surgical History: Coronary Bypass/CABG, Heart Catheterization With Stent Past Anesthesia/Blood Transfusion Reactions: No Reported Reaction Additional Past Anesthesia/Blood Transfusion Reaction / Comment(s): no hx of transfusion Date of Last Stent Placement:: 2001 Past Psychological History: No Psychological Hx Reported Smoking Status: Never smoker Past Alcohol Use History: None Reported Past Drug Use History: None Reported General Exam - General Exam Comments Initial Comments: Physical Exam GENERAL: Patient is well-developed and well-nourished. Patient is nontoxic and well-hydrated and is in no distress. HENT: Normocephalic, Atraumatic. EYES: PERRL, EOMI PULMONARY: Unlabored respirations. No audible rales rhonchi or wheezing was noted. CARDIOVASCULAR: There is a regular rate and rhythm without any murmurs gallops or rubs. ABDOMEN: Soft and nontender with normal bowel sounds. SKIN: Skin is clear with no lesions or rashes and otherwise unremarkable. : Deferred NEUROLOGIC: Patient is alert and oriented x3. Moving all extremities spontaneously MUSCULOSKELETAL: Normal extremities with adequate strength and full range of motion. No lower extremity swelling or edema. No calf tenderness. PSYCHIATRIC: Normal psychiatric evaluation. Course Vital Signs 07/24/23 07/24/23 07/24/23 03:40 04:00 05:33 Temperature 98.3 F Pulse Rate 56 L 74 59 L Respiratory 16 18 16 Rate Blood Pressure 125/77 136/85 108/77 O2 Sat by Pulse 99 99 99 Oximetry Medical Decision Making - Medical Decision Making Was pt. sent in by a medical professional or institution (, PA, INSULATION FOREMAN, urgent care, hospital, or senior living...) When possible be specific @ -No Did you speak to anyone other than the patient for history (EMS, parent, family, police, friend...)? What history was obtained from this source @ - at bedside Did you review nursing and triage notes (agree or disagree)? Why? @ -I reviewed and agree with nursing and triage notes Were old charts reviewed (outside hosp., previous admission, EMS record, old EKG, old radiological studies, urgent care reports/EKG's, senior living records)? Report findings @ -No old charts were reviewed Differential Diagnosis (chest pain, altered mental status, abdominal pain women, abdominal pain men, vaginal bleeding, weakness, fever, dyspnea, syncope, headache, dizziness, GI bleed, back pain, seizure, CVA, palpatations, mental health)? @ -Differential Abdominal Pain Men: Appendicitis, cholecystitis, diverticulosis, ischemic bowel, pancreatitis, hepatitis, UTI, gastroenteritis, AAA, incarcerated hernia, bowel obstruction, constipation, inflammatory bowel, hepatitis, peptic ulcer disease, splenic infarction, perforated viscus, testicular torsion, this is not meant to be an all-inclusive list EKG interpreted by me (3pts min.). @ -As above X-rays interpreted by me (1pt min.). @ -Abdominal x-ray reviewed at bedside concerning for small bowel obstruction therefore CT scan ordered CT interpreted by me (1pt min.). @ -CT scan concerning for small bowel obstruction no obvious free air U/S interpreted by me (1pt. min.). @ -None done What testing was considered but not performed or refused? (CT, X-rays, U/S, labs)? Why? @ -None What meds were considered but not given or refused? Why? @ -None Did you discuss the management of the patient with other professionals (professionals i.e. , PA, INSULATION FOREMAN, lab, RT, psych nurse, social research assistant, liquefied natural gas plant operator, teacher, chief security and safety officer, director case management)? Give summary @ -No Was smoking cessation discussed for >3mins.? @ -No Was critical care preformed (if so, how long)? @ -No Were there social determinants of health that impacted care today? How? (Ho melessness, low income, unemployed, alcoholism, drug addiction, transportation, low edu. Level, literacy, decrease access to med. care, alf, rehab)? @ -No Was there de-escalation of care discussed even if they declined (Discuss DNR or withdrawal of care, Hospice)? DNR status @ -No What co-morbidities impacted this encounter? (DM, HTN, Smoking, COPD, CAD, Cancer, CVA, ARF, Chemo, Hep., AIDS, mental health diagnosis, sleep apnea, morbid obesity)? @ -None Was patient admitted / discharged? Hospital course, mention meds given and route, prescriptions, significant lab abnormalities, going to OR and other pertinent info. @ -Admit Patient was seen and evaluated, patient with a firmly distended abdomen x-ray was obtained and is concerning for small bowel obstruction therefore CT scan was obtained. Patient was treated with antiemetics and pain medication. CT did confirm a small bowel obstruction decision was made to place an NG tube which patient consented to. Although some volume was given prior to placing NG tube, NG tube was able to be placed stomach contents were immediately suctioned out. X-ray was ordered for confirmation of location. Dr. Botello accepts admission with a consult placed to surgeon Dr. Luna Undiagnosed new problem with uncertain prognosis? @ -Yes Drug Therapy requiring intensive monitoring for toxicity (Heparin, Nitro, Insulin, Cardizem)? @ -No Were any procedures done? @ -NG tube placement Diagnosis/symptom? @ -Small bowel obstruction, acute pancreatitis Acute, or Chronic, or Acute on Chronic? @ -Acute Uncomplicated (without systemic symptoms) or Complicated (systemic symptoms)? @ -Uncomplicated Side effects of treatment? @ -No Exacerbation, Progression, or Severe Exacerbation? @ -No Poses a threat to life or bodily function? How? (Chest pain, [place], SC, pneumonia, PE, COPD, DKA, ARF, appy, cholecystitis, CVA, Diverticulitis, Homicidal, Guzmán icidal, threat to staff... and all critical care pts) @ -Yes, - Lab Data Result diagrams: 07/24/23 04:23 07/24/23 04:23 Lab Results 07/24/23 07/24/23 Range/Units 04:23 04:23 WBC 12.9 H (3.8-10.6) k/uL RBC 4.64 (4.30-5.90) m/uL Hgb 14.0 (13.0-17.5) gm/dL Hct 42.4 (39.0-53.0) % MCV 91.4 (80.0-100.0) fL MCH 30.1 (25.0-35.0) pg MCHC 32.9 (31.0-37.0) g/dL RDW 14.2 (11.5-15.5) % Plt Count 180 (150-450) k/uL MPV 8.2 Neutrophils % 83 % Lymphocytes % 10 % Monocytes % 5 % Eosinophils % 0 % Basophils % 0 % Neutrophils # 10.8 H (1.3-7.7) k/uL Lymphocytes # 1.2 (1.0-4.8) k/uL Monocytes # 0.6 (0-1.0) k/uL Eosinophils # 0.0 (0-0.7) k/uL Basophils # 0.0 (0-0.2) k/uL Sodium 138 (137-145) mmol/L Potassium 4.5 (3.5-5.1) mmol/L Chloride 102 (98-107) mmol/L Carbon Dioxide 25 (22-30) mmol/L Anion Gap 11 mmol/L BUN 37 H (9-20) mg/dL Creatinine 0.61 L (0.66-1.25) mg/dL Est GFR (CKD-EPI)AfAm >90 (>60 ml/min/1.73 sqM) Est GFR (CKD-EPI)NonAf >90 (>60 ml/min/1.73 sqM) Glucose 163 H (74-99) mg/dL Calcium 10.0 (8.4-10.2) mg/dL Total Bilirubin 0.9 (0.2-1.3) mg/dL AST 42 (17-59) U/L ALT 25 (4-49) U/L Alkaline Phosphatase 84 (38-126) U/L Total Protein 7.1 (6.3-8.2) g/dL Albumin 4.3 (3.5-5.0) g/dL Lipase 3112 H (23-300) U/L Disposition Clinical Impression: Small bowel obstruction, Pancreatitis Disposition: ADMITTED IP TO THIS HOSP Condition: Serious Is patient prescribed a controlled substance at d/c from ED?: No Referrals: Tamica Trujillo MD [Primary Care Provider] - 1-2 days
--- NOTE | 2023-07-24 07:47 | XR ---
EXAMINATION TYPE: Single view of the chest DATE OF EXAM: 07/24/2023 COMPARISON: 03/22/2021 HISTORY: Shortness of breath TECHNIQUE: Single view of the chest FINDINGS: Scattered senescent parenchymal changes noted. Hyperinflation compatible with COPD. No evidence for infiltrate. No evidence for atelectasis. NG tube is seen coursing into the stomach. Heart size is stable. Mediastinal structures are stable and grossly unremarkable. No evidence for hilar prominence. Degenerative changes dorsal spine. IMPRESSION: 1. No evidence for acute pulmonary disease.
[2023-07-24] MEDS: PANTOPRAZOLE 40 MG/10 ML VIAL IV SCH (08:42)
[2023-07-24] MEDS ORDERED: ALPRAZolam 0.25 MG TAB PO PRN (09:03)
--- NOTE | 2023-07-24 10:26 | P.HPIM ---
History of Present Illness H&P Date: 07/24/23 Is an 88-year-old male patient who presented to the ER with concerns of abdominal distention and cramping. Patient reports his symptoms started around 9 PM yesterday which was unable to have a bowel movement and continuous cramping. Patient has a history of coronary artery bypass graft surgery, atrial fibrillation, hyperlipidemia, hypertension. Abdominal x-ray completed showing evaluation for free air is limited by spinal imaging findings suspicious for bowel obstruction. CT of abdomen and pelvis completed showing small bowel obstruction small bowel loops measure up to 4.6 cm no evidence of pneumatosis. No evidence of obstructive renal calculi. Nonobstructive calculus in the inferior pole the right kidney no acute findings. Chest x-ray completed showing no evidence for acute pulmonary disease lab work revealing white blood cell 12.9, creatinine 0.61 bun 37 lipase elevated at 3112. At this time patient will be admitted NG tube has been placed surgical services consulted patient made nothing by mouth. Current vital signs temp 90.3, heart rate 74, respiratory 18, blood pressure 115/86 with pulse ox 97% on room air. Patient reports some improvement with abdominal pain. Patient denies any nausea or vomiting at this time. Patient denies chest pain or shortness of breath. Patient denies any urinary burning or frequency. Review of Systems Please refer to HPI otherwise unremarkable Past Medical History Past Medical History: Coronary Artery Disease (CAD), Hyperlipidemia, Hypertension History of Any Multi-Drug Resistant Organisms: None Reported Past Surgical History: Coronary Bypass/CABG, Heart Catheterization With Stent Past Anesthesia/Blood Transfusion Reactions: No Reported Reaction Additional Past Anesthesia/Blood Transfusion Reaction / Comment(s): no hx of transfusion Date of Last Stent Placement:: 2001 Past Psychological History: No Psychological Hx Reported Smoking Status: Never smoker Past Alcohol Use History: None Reported Past Drug Use History: None Reported Medications and Allergies Home Medications Medication Instructions Recorded Confirmed Type Ascorbic Acid [Vitamin C] 500 mg PO DAILY 03/22/21 07/24/23 History Cholecalciferol [Vitamin D3 (25 25 mcg PO DAILY 03/22/21 07/24/23 History Mcg = 1000 Iu)] Ezetimibe [Zetia] 10 mg PO DAILY 03/22/21 07/24/23 History Latanoprost [Xalatan 0.005%] 1 drop BOTH EYES HS 03/22/21 07/24/23 History Levothyroxine Sodium [Synthroid] 88 mcg PO DAILY 03/22/21 07/24/23 History Loratadine [Claritin] 10 mg PO DAILY 03/22/21 07/24/23 History Losartan Potassium 50 mg PO DAILY 03/22/21 07/24/23 History Multivitamins, Thera [Multivitamin 1 tab PO DAILY 03/22/21 07/24/23 History (formulary)] Pratt-3/Dha/Epa/Fish Oil [Fish Oil 1 cap PO DAILY 03/22/21 07/24/23 History 500 mg Softgel] Rosuvastatin [Crestor] 10 mg PO TUTH 03/22/21 07/24/23 History Vit C/E/Zn/Coppr/Lutein/Zeaxan 1 cap PO DAILY 03/22/21 07/24/23 History [Preservision Areds 2 Softgel] Apixaban [Eliquis] 5 mg PO BID tab 03/25/21 07/24/23 Rx Calcium 26/Vit D3/Magnesium 15 1 cap PO BID 07/24/23 07/24/23 History [Emampbn-Qex-N5 Complx 167Mg Cp] Furosemide [Lasix] 20 mg PO DAILY PRN 07/24/23 07/24/23 History Allergies Allergy/AdvReac Type Severity Reaction Status Date / Time No Known Allergies Allergy Verified 07/24/23 07:26 Physical Exam Vitals: Vital Signs Temp Pulse Resp BP Pulse Ox 07/24/23 08:00 68 18 152/97 94 L 07/24/23 06:14 74 18 115/86 97 07/24/23 05:33 59 L 16 108/77 99 07/24/23 04:00 74 18 136/85 99 07/24/23 03:40 98.3 F 56 L 16 125/77 99 Intake and Output 07/23/23 07/24/23 07/24/23 22:59 06:59 14:59 Other: Weight 81.647 kg Head normocephalic Neck supple Lungs clear to auscultation bilaterally no wheezing or crackles Heart regular rate and rhythm S1-S2, no rub or gallop Abdomen is soft nontender nondistended positive bowel sounds no hepatosplenomegaly Extremities no edema Neuro alert and orientated to 3 Results CBC & Chem 7: 07/24/23 04:23 07/24/23 04:23 Labs: Abnormal Lab Results - Last 24 Hours (Table) 07/24/23 07/24/23 Range/Units 04:23 04:23 WBC 12.9 H (3.8-10.6) k/uL Neutrophils # 10.8 H (1.3-7.7) k/uL BUN 37 H (9-20) mg/dL Creatinine 0.61 L (0.66-1.25) mg/dL Glucose 163 H (74-99) mg/dL Lipase 3112 H (23-300) U/L Assessment and Plan Assessment: 1. Abdominal pain secondary to small bowel obstruction 2. Pancreatitis 3. History of atrial fibrillation 4. History of essential hypertension 5. History of hyperlipidemia 6. History of hypothyroidism 7. Underlying history of coronary artery disease with previous history of angioplasty and coronary artery bypass graft surgery At this time patient will be admitted NG tube placed Surgical service is consulted Patient currently nothing by mouth Repeat labs ordered for a.m. Time with Patient: Greater than 30 (Greater than 60% of the total time spent in counseling and coordination of care)
[2023-07-24] MEDS: LORazepam 2 MG/ML INJ IV PRN (10:32)
[2023-07-24] MEDS: hydrALAZINE HCL 20 MG/ML 1 ML VIAL IVP PRN (11:09)
--- NOTE | 2023-07-24 12:32 | P.GSCN ---
History of Present Illness Consult date: 07/24/23 History of present illness: CHIEF COMPLAINT: Abdominal pain HISTORY OF PRESENT ILLNESS: This is a 88-year-old male who presented with abdominal pain and abdominal distention that started at 930 last night. Patient reports that he was able to eat dinner. And then symptoms started later in the evening. He has been nauseous no vomiting. He was referred feeling some reflux. He did have flatus and a small bowel movement yesterday. Patient had a CT scan that reported evidence of a small bowel obstruction. He had NG tube placed. Patient reports since NG tube was placed he has had some relief in the pain and distention. Prior surgical history does include appendectomy and cholecystectomy. Cardiac history does include CABG and cardiac stents. He is on Eliquis for Afib. Last dose yesterday evening. Patient denies any prior history of bowel obstructions. Patient also with elevated lipase. No prior history of pancreatitis. Patient does drink wine occasionally. He did drink wine on . PAST MEDICAL HISTORY: See below PAST SURGICAL HISTORY: See below MEDICATIONS: See below ALLERGIES: See below SOCIAL HISTORY: No illicit drug use. REVIEW OF SYSTEMS: CONSTITUTIONAL: Denies fever or chills. HEENT: Denies blurred vision, vision changes, or eye pain. Denies hemoptysis CARDIOVASCULAR: Denies chest pain or pressure. RESPIRATORY: No shortness of breath. GASTROINTESTINAL: See HPI for pertinent findings HEMATOLOGIC: Denies bleeding disorders. GENITOURINARY: Denies any blood in urine or increased urinary frequency. SKIN: Denies pruitis. Denies rash. PHYSICAL EXAM: VITAL SIGNS: Reviewed GENERAL: Well-developed in no acute distress. HEENT: No sclera icterus. Extraocular movements grossly intact. Moist buccal mucosa. Head is atraumatic, normocephalic. No nasal drainage. ABDOMEN: Soft. Distended. Diffuse lower tenderness but more so in left lower quadrant tenderness with palpation NEUROLOGIC: Alert and oriented. Cranial nerves II through XII grossly intact. LABORATORY DATA: WBC 12.9 Hgb 14 platelets 180 Sodium 138 potassium 4.5 creatinine 0.61 Lipase 3112 LFTs normal IMAGING: CT scan abdomen pelvis Limited exam. Small bowel obstruction. Small bowel loops measuring up to 4.6 cm. Transition point is poorly identified but suspected within the right Joel abdomen. No pneumatosis, portal venous gas or free air. Nonobstructive calculus inferior pole of the right kidney ASSESSMENT: 1. Small bowel obstruction 2. Pancreatitis 3. History of cholecystectomy 4. Cardiac history with CABG, cardiac stents and on Eliquis for A-fib PLAN: -Continue NG tube for decompression -Keep patient n.p.o. -Continue IV fluids -Continue supportive care -Repeat labs in a.m. -Further recommendations forthcoming per surgeon Physician Farm Mechanic Apprentice note has been reviewed by physician. Signing provider agrees with the documented findings, assessment, and plan of care. I have personally seen and examined the patient, reviewed the SERVICE OFFICER /PAs history, exam and MDM and agree with the assessment and plan as written. Based on total visit time, I have performed more than 50% of the visit. As above: Patient presents with abdominal pain and bloating. Remains bloated at this time. Pain is improved however. Resting comfortably in bed currently. CAT scan reviewed. Patient has small bowel dilation. Some collapsed distal small bowel. There appears to be a small right inguinal hernia. It may contain a small portion of bowel however this does not appear to be a definite transition point on CAT scan. On exam there is no palpable inguinal hernia at this time. Denies any bulge or pain in the right groin. Patient's lipase is also elevated. White blood cell count 12.9. Hemodynamically stable. Nasogastric tube was placed with minimal output. It appears to be coiled somewhat in the stomach. Will have the nasogastric tube withdrawn 10 cm. Continue NPO. Continue bowel rest. Repeat abdominal x-rays tomorrow. Repeat lab work tomorrow. Continue to treat conservatively for now. Clinical scenario discussed in detail with the patient and his . Past Medical History Past Medical History: Coronary Artery Disease (CAD), Hyperlipidemia, Hypertension History of Any Multi-Drug Resistant Organisms: None Reported Past Surgical History: Coronary Bypass/CABG, Heart Catheterization With Stent Past Anesthesia/Blood Transfusion Reactions: No Reported Reaction Additional Past Anesthesia/Blood Transfusion Reaction / Comm: no hx of transfusion Date of Last Stent Placement:: 2001 Past Psychological History: No Psychological Hx Reported Smoking Status: Never smoker Past Alcohol Use History: None Reported Past Drug Use History: None Reported Medications and Allergies Home Medications Medication Instructions Recorded Confirmed Type Ascorbic Acid [Vitamin C] 500 mg PO DAILY 03/22/21 07/24/23 History Cholecalciferol [Vitamin D3 (25 25 mcg PO DAILY 03/22/21 07/24/23 History Mcg = 1000 Iu)] Ezetimibe [Zetia] 10 mg PO DAILY 03/22/21 07/24/23 History Latanoprost [Xalatan 0.005%] 1 drop BOTH EYES HS 03/22/21 07/24/23 History Levothyroxine Sodium [Synthroid] 88 mcg PO DAILY 03/22/21 07/24/23 History Loratadine [Claritin] 10 mg PO DAILY 03/22/21 07/24/23 History Losartan Potassium 50 mg PO DAILY 03/22/21 07/24/23 History Multivitamins, Thera [Multivitamin 1 tab PO DAILY 03/22/21 07/24/23 History (formulary)] Codorus-3/Dha/Epa/Fish Oil [Fish Oil 1 cap PO DAILY 03/22/21 07/24/23 History 500 mg Softgel] Rosuvastatin [Crestor] 10 mg PO TUTH 03/22/21 07/24/23 History Vit C/E/Zn/Coppr/Lutein/Zeaxan 1 cap PO DAILY 03/22/21 07/24/23 History [Preservision Areds 2 Softgel] Apixaban [Eliquis] 5 mg PO BID tab 03/25/21 07/24/23 Rx Calcium 26/Vit D3/Magnesium 15 1 cap PO BID 07/24/23 07/24/23 History [Atfirgl-Aff-F3 Complx 167Mg Cp] Furosemide [Lasix] 20 mg PO DAILY PRN 07/24/23 07/24/23 History Allergies Allergy/AdvReac Type Severity Reaction Status Date / Time No Known Allergies Allergy Verified 07/24/23 07:26 Surgical - Exam Vital Signs Temp Pulse Resp BP Pulse Ox 98.3 F 56 L 16 125/77 99 07/24/23 03:40 07/24/23 03:40 07/24/23 03:40 07/24/23 03:40 07/24/23 03:40 Results - Labs 07/24/23 04:23 07/24/23 04:23 Abnormal Lab Results - Last 24 Hours (Table) 07/24/23 07/24/23 Range/Units 04:23 04:23 WBC 12.9 H (3.8-10.6) k/uL Neutrophils # 10.8 H (1.3-7.7) k/uL BUN 37 H (9-20) mg/dL Creatinine 0.61 L (0.66-1.25) mg/dL Glucose 163 H (74-99) mg/dL Lipase 3112 H (23-300) U/L Diabetes panel 07/24/23 Range/Units 04:23 Sodium 138 (137-145) mmol/L Potassium 4.5 (3.5-5.1) mmol/L Chloride 102 (98-107) mmol/L Carbon Dioxide 25 (22-30) mmol/L BUN 37 H (9-20) mg/dL Creatinine 0.61 L (0.66-1.25) mg/dL Glucose 163 H (74-99) mg/dL Calcium 10.0 (8.4-10.2) mg/dL AST 42 (17-59) U/L ALT 25 (4-49) U/L Alkaline Phosphatase 84 (38-126) U/L Total Protein 7.1 (6.3-8.2) g/dL Albumin 4.3 (3.5-5.0) g/dL Calcium panel 07/24/23 Range/Units 04:23 Calcium 10.0 (8.4-10.2) mg/dL Albumin 4.3 (3.5-5.0) g/dL Pituitary panel 07/24/23 Range/Units 04:23 Sodium 138 (137-145) mmol/L Potassium 4.5 (3.5-5.1) mmol/L Chloride 102 (98-107) mmol/L Carbon Dioxide 25 (22-30) mmol/L BUN 37 H (9-20) mg/dL Creatinine 0.61 L (0.66-1.25) mg/dL Glucose 163 H (74-99) mg/dL Calcium 10.0 (8.4-10.2) mg/dL Adrenal panel 07/24/23 Range/Units 04:23 Sodium 138 (137-145) mmol/L Potassium 4.5 (3.5-5.1) mmol/L Chloride 102 (98-107) mmol/L Carbon Dioxide 25 (22-30) mmol/L BUN 37 H (9-20) mg/dL Creatinine 0.61 L (0.66-1.25) mg/dL Glucose 163 H (74-99) mg/dL Calcium 10.0 (8.4-10.2) mg/dL Total Bilirubin 0.9 (0.2-1.3) mg/dL AST 42 (17-59) U/L ALT 25 (4-49) U/L Alkaline Phosphatase 84 (38-126) U/L Total Protein 7.1 (6.3-8.2) g/dL Albumin 4.3 (3.5-5.0) g/dL
[2023-07-24] MEDS: ENOXAPARIN 80 MG/0.8 ML SYRINGE SQ SCH (20:56)
[2023-07-25] MEDS: ONDANSETRON 4 MG/2 ML VIAL IVP PRN (06:04)
--- NOTE | 2023-07-25 07:31 | XR ---
EXAMINATION TYPE: XR abdomen 2V DATE OF EXAM: 07/25/2023 CLINICAL DATA: 88-year-old male follow-up small bowel junction, [facility] COMPARISON: 07/24/2023 FINDINGS: Diffusely dilated small bowel loops with multiple air-fluid levels. NG tube is in place wit h Kris fluid in the stomach as well. Patchy retrocardiac and bibasilar opacities. No evidence for fr ee intraperitoneal air. Retained epicardial pacer leads. Small bowel loops are dilated up to 5.1 cm v ersus 4.4 cm, previously. Small amount of colonic air noted. There is a 9 mm calcification right mid abdomen possibly within the right kidney. IMPRESSION: 1. Ongoing small bowel obstruction with multiple air-fluid levels. Dilatation up to 5.1 cm versus 4.[address], history. NG tube in place. 2. Mild patchy bibasilar densities.
[2023-07-25] MEDS: LEVOTHYROXINE IVP 100 MCG/5 ML VIAL IV SCH (08:50)
[2023-07-25 09:40] LABS: Basophils # (A) 0.01 X 10*3/uL (0.00-0.10); Basophils % (A) 0.1 %; Eosinophils # (A) 0 X 10*3/uL (0.04-0.35); Eosinophils % (A) 0 %; HCT 45.7 % (39.6-50.0); HGB 14.6 g/dL (13.0-17.0); Lymphocytes % (A) 5.3 %; MCH 28.6 pg (27.0-32.0); MCHC 31.9 g/dL (32.0-37.0); MCV 89.4 FL (80.0-97.0); Mean Platelet Volume 10.4 FL (9.5-12.2); Monocytes # (A) 1.06 X 10*3/uL (0.20-1.00); NRBC Per 100 WBC 0 X 10*3/uL (0.00-0.01); Neutrophils # (A) 11.39 X 10*3/uL (1.80-7.70); Neutrophils % (A) 86.3 %; Platelet Count 203 X 10*3/uL (140-440); RBC 5.11 X 10*6/uL (4.40-5.60); RDW 14.8 % (11.5-14.5)
--- NOTE | 2023-07-25 09:51 | P.PN ---
Subjective Progress Note Date: 07/25/23 Morgan Avendano, is an 88-year-old male patient who presented to the ER with concerns of abdominal distention and cramping. Patient reports his symptoms started around 9 PM yesterday which was unable to have a bowel movement and continuous cramping. Patient has a history of coronary artery bypass graft hollis rgery, atrial fibrillation, hyperlipidemia, hypertension. Abdominal x-ray completed showing evaluation for free air is limited by spinal imaging findings suspicious for bowel obstruction. CT of abdomen and pelvis completed showing small bowel obstruction small bowel loops measure up to 4.6 cm no evidence of pneumatosis. No evidence of obstructive renal calculi. Nonobstructive calculus in the inferior pole the right kidney no acute findings. Chest x-ray completed showing no evidence for acute pulmonary disease lab work revealing white blood cell 12.9, creatinine 0.61 bun 37 lipase elevated at 3112. At this time patient will be admitted NG tube has been placed surgical services consulted patient made nothing by mouth. Current vital signs temp 90.3, heart rate 74, respiratory 18, blood pressure 115/86 with pulse ox 97% on room air. Patient reports some improvement with abdominal pain. Patient denies any nausea or vomiting at this time. Patient denies chest pain or shortness of breath. Patient denies any urinary burning or frequency. On 07/25/2023 patient was seen and examined on the medical floor he is alert and oriented 3 in no apparent distress, he is still complaining of some abdominal discomfort, however he is improved since yesterday, NG tube is still in, there is no fever or chills no headache or dizziness no chest pain no shortness of breath no cough no nausea or vomiting, patient is not passing any gas or having any bowel movement, there is no urinary symptoms. Objective - Vital Signs Vital signs: Vital Signs Temp 98.9 F 07/25/23 07:35 Pulse 95 07/25/23 07:35 Resp 18 07/25/23 07:35 BP 115/74 07/25/23 07:35 Pulse Ox 94 L 07/25/23 07:35 FiO2 Intake & Output 07/24/23 07/25/23 07/25/23 18:59 06:59 18:59 Output Total 480 Balance -480 Weight 81.647 kg Output: Gastric Drainage 480 - Exam Head normocephalic Neck supple Lungs clear to auscultation bilaterally no wheezing or crackles Heart regular rate and rhythm S1-S2, no rub or gallop Abdomen is soft nontender nondistended positive bowel sounds no hepatosplenomegaly Extremities no edema Neuro alert and orientated to 3 - Labs CBC & Chem 7: 07/24/23 04:23 07/24/23 04:23 Assessment and Plan Assessment: 1. Abdominal pain secondary to small bowel obstruction 2. Pancreatitis 3. History of atrial fibrillation 4. History of essential hypertension 5. History of hyperlipidemia 6. History of hypothyroidism 7. Underlying history of coronary artery disease with previous history of angioplasty and coronary artery bypass graft surgery At this time patient will be admitted NG tube placed Surgical service is consulted Patient currently nothing by mouth Repeat labs ordered for a.m.
[2023-07-25 10:15] LABS: ALT 35 U/L (10-49); AST 39 U/L (14-35); Albumin 4.1 g/dL (3.8-4.9); Albumin/Globulin Ratio 1.71 Ratio (1.60-3.17); Alkaline Phosphatase 83 U/L (41-126); Amylase 151 U/L (23-121); BUN/Creat Ratio 57.57 Ratio (12.00-20.00); Blood Urea Nitrogen 40.3 mg/dL (9.0-27.0); Calcium 9.6 mg/dL (8.7-10.3); Carbon Dioxide 21.4 mmol/L (21.6-31.8); Chloride 105 mmol/L (96-109); Globulin 2.4 g/dL (1.6-3.3); Glucose 112 mg/dL (70-110); Lipase 35 U/L (14-60); Potassium 4.5 mmol/L (3.5-5.5); Sodium 143 mmol/L (135-145); Total Bilirubin 0.9 mg/dL (0.3-1.2); Total Protein 6.5 g/dL (6.2-8.2)
--- NOTE | 2023-07-25 22:35 | P.PN ---
Subjective Principal diagnosis: Patient seen and evaluated at bedside. Patient has abdominal pain, +nausea, no guarding or rebound tenderness Objective - Vital Signs Vital signs: Vital Signs Temp 98.8 F 07/25/23 19:07 Pulse 101 H 07/25/23 19:07 Resp 20 07/25/23 19:07 BP 166/83 07/25/23 19:07 Pulse Ox 96 07/25/23 19:07 FiO2 Intake & Output 07/25/23 07/25/23 07/26/23 06:59 18:59 07:59 Output Total 480 400 Balance -480 -400 Weight 81.647 kg Output: Gastric Drainage 480 400 Other: # Voids 3 gen: nad cv: rrr pul: non labored breathing abd: soft, + distention, no guarding or rebound tenderness. - Labs CBC & Chem 7: 07/25/23 06:04 07/25/23 06:04 Labs: Abnormal Lab Results - Last 24 Hours (Table) 07/25/23 07/25/23 Range/Units 06:04 06:04 WBC 13.20 H (4.50-10.00) X 10*3/uL MCHC 31.9 L (32.0-37.0) g/dL RDW 14.8 H (11.5-14.5) % Neutrophils # 11.39 H (1.80-7.70) X 10*3/uL Lymphocytes # 0.70 L (0.90-5.00) X 10*3/uL Monocytes # 1.06 H (0.20-1.00) X 10*3/uL Eosinophils # 0 L (0.04-0.35) X 10*3/uL Carbon Dioxide 21.4 L (21.6-31.8) mmol/L Anion Gap 16.60 H (4.00-12.00) mmol/L BUN 40.3 H (9.0-27.0) mg/dL BUN/Creatinine Ratio 57.57 H (12.00-20.00) Ratio Glucose 112 H (70-110) mg/dL AST 39 H (14-35) U/L Amylase 151 H (23-121) U/L Assessment and Plan Assessment: 88 yo w/ sbo 2/2 pancreatitis -ngt-lis -trend labs -monitor for bowel function
--- NOTE | 2023-07-26 05:04 | XR ---
EXAM: XR Chest, 1 View CLINICAL HISTORY: ITS.REASON XR Reason: NG tube placement TECHNIQUE: Frontal view of the chest. COMPARISON: No relevant prior studies available. FINDINGS: Lungs: Patchy airspace disease is seen within the bilateral lung bases. No consolidation. Pleural space: Unremarkable. No pneumothorax. Heart: Mild enlargement of the cardiac silhouette. Mediastinum: Unremarkable. Normal mediastinal contour. Bones/joints: Sternotomy wires are in place. Degenerative changes are seen within the spine and shoulders. No acute fracture. Vasculature: Calcifications overlie the aorta. Tubes, lines and devices: Enteric tube is in place with the tip curled over the gastric bubble. IMPRESSION: Bibasilar atelectasis versus pneumonia.
--- NOTE | 2023-07-26 10:21 | P.PN ---
Subjective Progress Note Date: 07/26/23 Principal diagnosis: Small bowel obstruction Patient says he feels well today. Denies abdominal pain. He passed a lot of flatus he says. No bowel movements. Yesterday's labs show slight increase white blood cell count at 13, lipase came down to normal, amylase slightly eleva gina at 151. X-rays yesterday still show dilated small bowel loops. A chest x- ray was done this morning because they were worried the NG tube is not putting out much. They pulled the nasogastric tube back some with no improvement. Objective - Vital Signs Vital signs: Vital Signs Temp 97.6 F 07/26/23 07:12 Pulse 84 07/26/23 07:12 Resp 16 07/26/23 08:20 BP 127/78 07/26/23 07:12 Pulse Ox 93 L 07/26/23 07:12 FiO2 Intake & Output 07/25/23 07/26/23 07/26/23 17:59 06:59 18:59 Output Total Balance Output: Gastric Drainage Other: # Voids - Exam Abdomen: Soft, mild distention, nontender, no palpable inguinal hernia - Labs CBC & Chem 7: 07/25/23 06:04 07/25/23 06:04 Labs: Abnormal Lab Results - Last 24 Hours (Table) 07/25/23 07/25/23 Range/Units 06:04 06:04 WBC 13.20 H (4.50-10.00) X 10*3/uL MCHC 31.9 L (32.0-37.0) g/dL RDW 14.8 H (11.5-14.5) % Neutrophils # 11.39 H (1.80-7.70) X 10*3/uL Lymphocytes # 0.70 L (0.90-5.00) X 10*3/uL Monocytes # 1.06 H (0.20-1.00) X 10*3/uL Eosinophils # 0 L (0.04-0.35) X 10*3/uL Carbon Dioxide 21.4 L (21.6-31.8) mmol/L Anion Gap 16.60 H (4.00-12.00) mmol/L BUN 40.3 H (9.0-27.0) mg/dL BUN/Creatinine Ratio 57.57 H (12.00-20.00) Ratio Glucose 112 H (70-110) mg/dL AST 39 H (14-35) U/L Amylase 151 H (23-121) U/L Assessment and Plan (1) Small bowel obstruction Narrative/Plan: Overall patient doing much better. Will plan small bowel series for tomorrow. If that study is normal remove nasogastric tube and begin liquid diet. Etiology for this bowel obstruction remains unclear. Could be related to a small right inguinal hernia that is difficult to palpate. Will follow closely. Current Visit: Yes Status: Acute Code(s): K56.609 - UNSP INTESTNL OBST, UNSP TO PARTIAL VERSUS COMPLETE OBST SNOMED Code(s): 033321003
--- NOTE | 2023-07-26 10:50 | P.PN ---
Subjective Progress Note Date: 07/26/23 Morgan Avendano, is an 88-year-old male patient who presented to the ER with concerns of abdominal distention and cramping. Patient reports his symptoms started around 9 PM yesterday which was unable to have a bowel movement and continuous cramping. Patient has a history of coronary artery bypass graft hollis rgery, atrial fibrillation, hyperlipidemia, hypertension. Abdominal x-ray completed showing evaluation for free air is limited by spinal imaging findings suspicious for bowel obstruction. CT of abdomen and pelvis completed showing small bowel obstruction small bowel loops measure up to 4.6 cm no evidence of pneumatosis. No evidence of obstructive renal calculi. Nonobstructive calculus in the inferior pole the right kidney no acute findings. Chest x-ray completed showing no evidence for acute pulmonary disease lab work revealing white blood cell 12.9, creatinine 0.61 bun 37 lipase elevated at 3112. At this time patient will be admitted NG tube has been placed surgical services consulted patient made nothing by mouth. Current vital signs temp 90.3, heart rate 74, respiratory 18, blood pressure 115/86 with pulse ox 97% on room air. Patient reports some improvement with abdominal pain. Patient denies any nausea or vomiting at this time. Patient denies chest pain or shortness of breath. Patient denies any urinary burning or frequency. On 07/25/2023 patient was seen and examined on the medical floor he is alert and oriented 3 in no apparent distress, he is still complaining of some abdominal discomfort, however he is improved since yesterday, NG tube is still in, there is no fever or chills no headache or dizziness no chest pain no shortness of breath no cough no nausea or vomiting, patient is not passing any gas or having any bowel movement, there is no urinary symptoms. On 07/26/2023 patient's alert and oriented 3. Patient reports improvement of abdominal discomfort compared to yesterday NG tube remains in place. Per surgical services plans for small bowel series tomorrow and if normal NG tube earlier removed and liquid diet will be started. Current vital signs temp 97.6, 84, respiratory 16, blood pressure 127/78 with a pulse ox 93 Objective - Vital Signs Vital signs: Vital Signs Temp 97.6 F 07/26/23 07:12 Pulse 84 07/26/23 07:12 Resp 16 07/26/23 08:20 BP 127/78 07/26/23 07:12 Pulse Ox 93 L 07/26/23 07:12 FiO2 Intake & Output 07/25/23 07/26/23 07/26/23 17:59 06:59 18:59 Output Total Balance Output: Gastric Drainage Other: # Voids - Exam Head normocephalic Neck supple Lungs clear to auscultation bilaterally no wheezing or crackles Heart regular rate and rhythm S1-S2, no rub or gallop Abdomen is soft nontender nondistended positive bowel sounds no hepatosplenomegaly Extremities no edema Neuro alert and orientated to 3 - Labs CBC & Chem 7: 07/25/23 06:04 07/25/23 06:04 Labs: Abnormal Lab Results - Last 24 Hours (Table) 07/25/23 Range/Units 06:04 Carbon Dioxide 21.4 L (21.6-31.8) mmol/L Anion Gap 16.60 H (4.00-12.00) mmol/L BUN 40.3 H (9.0-27.0) mg/dL BUN/Creatinine Ratio 57.57 H (12.00-20.00) Ratio Glucose 112 H (70-110) mg/dL AST 39 H (14-35) U/L Amylase 151 H (23-121) U/L Assessment and Plan Assessment: 1. Abdominal pain secondary to small bowel obstruction 2. Pancreatitis 3. History of atrial fibrillation 4. History of essential hypertension 5. History of hyperlipidemia 6. History of hypothyroidism 7. Underlying history of coronary artery disease with previous history of angioplasty and coronary artery bypass graft surgery At this time patient will be admitted NG tube placed Surgical service is consulted Patient currently nothing by mouth Plans for small bowel series 07/27/2023 Repeat labs ordered for a.m.
[2023-07-26 11:28] LABS: Basophils # (A) 0.01 X 10*3/uL (0.00-0.10); Basophils % (A) 0.1 %; Eosinophils # (A) 0 X 10*3/uL (0.04-0.35); Eosinophils % (A) 0 %; HCT 40.1 % (39.6-50.0); HGB 13.1 g/dL (13.0-17.0); Lymphocytes # (A) 0.84 X 10*3/uL (0.90-5.00); Lymphocytes % (A) 12.2 %; MCH 29.5 pg (27.0-32.0); MCHC 32.7 g/dL (32.0-37.0); MCV 90.3 FL (80.0-97.0); Mean Platelet Volume 10.7 FL (9.5-12.2); Monocytes # (A) 1.18 X 10*3/uL (0.20-1.00); Monocytes % (A) 17.1 %; NRBC Per 100 WBC 0 X 10*3/uL (0.00-0.01); Neutrophils # (A) 4.87 X 10*3/uL (1.80-7.70); Neutrophils % (A) 70.5 %; Platelet Count 184 X 10*3/uL (140-440); RBC 4.44 X 10*6/uL (4.40-5.60); RDW 14.9 % (11.5-14.5); WBC 6.91 X 10*3/uL (4.50-10.00)
[2023-07-26 12:20] LABS: ALT 23 U/L (10-49); AST 31 U/L (14-35); Albumin 3.6 g/dL (3.8-4.9); Alkaline Phosphatase 67 U/L (41-126); BUN/Creat Ratio 74.67 Ratio (12.00-20.00); Blood Urea Nitrogen 44.8 mg/dL (9.0-27.0); Calcium 8.9 mg/dL (8.7-10.3); Carbon Dioxide 20.7 mmol/L (21.6-31.8); Chloride 108 mmol/L (96-109); Glucose 105 mg/dL (70-110); Potassium 3.9 mmol/L (3.5-5.5); Sodium 143 mmol/L (135-145); Total Bilirubin 0.7 mg/dL (0.3-1.2); Total Protein 5.6 g/dL (6.2-8.2)
[2023-07-27 11:02] LABS: Basophils # (A) 0.02 X 10*3/uL (0.00-0.10); Basophils % (A) 0.3 %; Eosinophils # (A) 0.16 X 10*3/uL (0.04-0.35); Eosinophils % (A) 2.4 %; HCT 38.5 % (39.6-50.0); HGB 12.2 g/dL (13.0-17.0); Lymphocytes # (A) 1.08 X 10*3/uL (0.90-5.00); Lymphocytes % (A) 15.9 %; MCH 28.8 pg (27.0-32.0); MCHC 31.7 g/dL (32.0-37.0); MCV 90.8 FL (80.0-97.0); Mean Platelet Volume 10.3 FL (9.5-12.2); Monocytes # (A) 1.09 X 10*3/uL (0.20-1.00); Monocytes % (A) 16.1 %; NRBC Per 100 WBC 0 X 10*3/uL (0.00-0.01); Neutrophils # (A) 4.42 X 10*3/uL (1.80-7.70); Neutrophils % (A) 65.2 %; Platelet Count 189 X 10*3/uL (140-440); RBC 4.24 X 10*6/uL (4.40-5.60); RDW 14.6 % (11.5-14.5); WBC 6.78 X 10*3/uL (4.50-10.00)
[2023-07-27 11:16] LABS: Blood Urea Nitrogen 35.9 mg/dL (9.0-27.0); Calcium 7.9 mg/dL (8.7-10.3); Carbon Dioxide 19.2 mmol/L (21.6-31.8); Chloride 112 mmol/L (96-109); Glucose 69 mg/dL (70-110); Sodium 146 mmol/L (135-145)
--- NOTE | 2023-07-27 12:31 | FL ---
EXAMINATION TYPE: FL small bowel follow through DATE OF EXAM: 07/27/2023 10:35 AM COMPARISON: CT abdomen pelvis most recent from INDICATION: Patient age:Male; 88 years old; Reason for study: Gastroview, SBO; TECHNIQUE: The procedure was explained and patient history elicited. All patient questions were ans wered prior to start of procedure. A slubber hand radiograph of the abdomen was also reviewed. The patient was asked to ingest liquid 12 ounce Gastrografin and incremental frontal abdominal radiographs were t hen taken until contrast was visualized in the cecum. Fluoroscopic time: None min Fluoroscopic images:0 Radiographs taken: 7 DAP: Not reported [id number] FINDINGS: The slubber hand abdominal radiograph demonstrates a normal bowel gas pattern without dilated loops of small or large bowel. Nasogastric tube in appropriate position. Sternotomy wires partially visualized. The re is no evidence of organomegaly or pneumoperitoneum. No abnormal calcifications. The visualized oss eous structures are intact. Multilevel degeneration changes throughout the spine. Contrast is seen extending from the duodenojejunal junction into the cecum after 1.5 hours, which is within the expected time period. The small bowel follows normal distribution and contour without any evidence of extraluminal or intraluminal irregularity. There is no displacement of bowel loops or e xtraluminal extravasation of contrast material. Small bowel mucosal folds are felt to be within edward l limits. IMPRESSION: Normal detailed small bowel examination.
--- NOTE | 2023-07-27 14:56 | P.PCN ---
Date of Procedure: 07/27/23 Procedure(s) Performed: Preoperative Dx: PEG tube malfunction Postoperative Dx: Same Procedure: EGD with PEG tube replacement Anesthesia: Sedation Endoscopist: Dr. Luna Specimens: None Endoscopic Procedure: The patient was on the endoscopy table in the left decubitus position. The Olympus gastroscope was inserted into the oropharynx and passed under direct visualization to the region of the third portion of the duodenum. From that point the scope was slowly withdrawn inspecting all surfaces carefully. There were no neoplastic inflammatory or polypoid lesions throughout the duodenum. The pylorus was widely patent. The stomach was carefully inspected. The patient's gastrostomy was present in the distal body anteriorly. The previous PEG tube was removed with anterior traction. It was fully intact. A new nonballoon replacement catheter was placed without difficulty. The bolster was tightened down. It was confirmed to be in the appropriate location endoscopically. The remainder of the stomach and esophagus appeared normal. The patient was then taken to the recovery room in stable condition per anesthesia guidelines. Recommendations: May utilize new catheter.
--- NOTE | 2023-07-27 15:01 | P.PN ---
Subjective Progress Note Date: 07/27/23 CHIEF COMPLAINT: Small bowel obstruction HISTORY OF PRESENT ILLNESS: Patient completed small bowel follow-through. Reviewed results reported normal small bowel examination. Patient having bowel movements. Reports pain has improved. Has had minimal output through the NG tube. Patient currently in the bathroom. Per nurse patient still mildly distended. Patient would like NG tube removed. Afebrile. WBC 6.78 Hgb 12.2 platelets 189 sodium 146 potassium 3.0 creatinine 0.5 PHYSICAL EXAM: VITAL SIGNS: Reviewed. GENERAL: Well-developed in no acute distress. ABDOMEN: Soft. Nontender. NEUROLOGIC: Alert and oriented. Cranial nerves II through XII grossly intact. ASSESSMENT: 1. Small bowel obstruction 2. Hypokalemia PLAN: -Further recommendations forthcoming per surgeon -Continue NG tube for now -Replace potassium -Encourage patient to increase activity level Physician [employer] note has been reviewed by physician. Signing provider agrees with the documented findings, assessment, and plan of care. I have personally seen and examined the patient, reviewed the PAPER SORTER AND COUNTER /PAs history, exam and MDM and agree with the assessment and plan as written. Based on total visit time, I have performed more than 50% of the visit. As above: Patient doing well today. Small bowel series shows no obstruction. Will remove nasogastric tube begin full liquid diet. Consider discharge tomorrow if tolerating. Objective - Vital Signs Vital signs: Vital Signs Temp 98.2 F 07/27/23 14:00 Pulse 97 07/27/23 14:00 Resp 17 07/27/23 14:00 BP 165/92 07/27/23 14:00 Pulse Ox 94 L 07/27/23 14:00 FiO2 Intake & Output 07/26/23 07/27/23 07/27/23 18:59 06:59 18:59 Intake Total 1560 Output Total 50 Balance 1510 Intake: Intake, IV Titration 1560 Amount Sodium Chloride 0.9% 1, 1560 000 ml @ 130 mls/hr IV . Q7H42M [facility] Rx#:[id number] Output: Gastric Drainage 50 Other: Voiding Method Toilet # Voids 2 2 # Bowel Movements 1 - Labs CBC & Chem 7: 07/27/23 06:31 07/27/23 06:31 Labs: Abnormal Lab Results - Last 24 Hours (Table) 03/11/24 03/11/24 Range/Units 06:31 06:31 RBC 4.24 L (4.40-5.60) X 10*6/uL Hgb 12.2 L (13.0-17.0) g/dL Hct 38.5 L (39.6-50.0) % MCHC 31.7 L (32.0-37.0) g/dL RDW 14.6 H (11.5-14.5) % Monocytes # 1.09 H (0.20-1.00) X 10*3/uL Sodium 146 H (135-145) mmol/L Potassium 3.0 L (3.5-5.5) mmol/L Chloride 112 H (96-109) mmol/L Carbon Dioxide 19.2 L (21.6-31.8) mmol/L Anion Gap 14.80 H (4.00-12.00) mmol/L BUN 35.9 H (9.0-27.0) mg/dL Creatinine 0.5 L (0.6-1.5) mg/dL BUN/Creatinine Ratio 71.80 H (12.00-20.00) Ratio Glucose 69 L (70-110) mg/dL Calcium 7.9 L (8.7-10.3) mg/dL
[2023-07-27] MEDS: POTASSIUM CHLORIDE ER 20 MEQ TAB.ER PO SCH (16:37)
--- NOTE | 2023-07-27 17:34 | P.PN ---
Subjective Progress Note Date: 07/27/23 Morgan Avendano, is an 88-year-old male patient who presented to the ER with concerns of abdominal distention and cramping. Patient reports his symptoms started around 9 PM yesterday which was unable to have a bowel movement and continuous cramping. Patient has a history of coronary artery bypass graft hollis rgery, atrial fibrillation, hyperlipidemia, hypertension. Abdominal x-ray completed showing evaluation for free air is limited by spinal imaging findings suspicious for bowel obstruction. CT of abdomen and pelvis completed showing small bowel obstruction small bowel loops measure up to 4.6 cm no evidence of pneumatosis. No evidence of obstructive renal calculi. Nonobstructive calculus in the inferior pole the right kidney no acute findings. Chest x-ray completed showing no evidence for acute pulmonary disease lab work revealing white blood cell 12.9, creatinine 0.61 bun 37 lipase elevated at 3112. At this time patient will be admitted NG tube has been placed surgical services consulted patient made nothing by mouth. Current vital signs temp 90.3, heart rate 74, respiratory 18, blood pressure 115/86 with pulse ox 97% on room air. Patient reports some improvement with abdominal pain. Patient denies any nausea or vomiting at this time. Patient denies chest pain or shortness of breath. Patient denies any urinary burning or frequency. On 07/25/2023 patient was seen and examined on the medical floor he is alert and oriented 3 in no apparent distress, he is still complaining of some abdominal discomfort, however he is improved since yesterday, NG tube is still in, there is no fever or chills no headache or dizziness no chest pain no shortness of breath no cough no nausea or vomiting, patient is not passing any gas or having any bowel movement, there is no urinary symptoms. On 07/26/2023 patient's alert and oriented 3. Patient reports improvement of abdominal discomfort compared to yesterday NG tube remains in place. Per surgical services plans for small bowel series tomorrow and if normal NG tube earlier removed and liquid diet will be started. Current vital signs temp 97.6, 84, respiratory 16, blood pressure 127/78 with a pulse ox 93 On 07/27/2023 patient was seen and examined on the medical floor he is alert and oriented 3 in no apparent distress there is no fever or chills no headache or dizziness no chest pain no shortness of breath no cough no nausea or vomiting no abdominal pain no diarrhea and no urinary symptoms. Patient is scheduled for E GD today Objective - Vital Signs Vital signs: Vital Signs Temp 98.5 F 07/27/23 07:05 Pulse 73 07/27/23 07:05 Resp 18 07/27/23 07:05 BP 123/75 07/27/23 07:05 Pulse Ox 93 L 07/27/23 07:05 FiO2 Intake & Output 07/26/23 07/27/23 07/27/23 18:59 06:59 18:59 Intake Total 1560 Output Total 50 Balance 1510 Intake: Intake, IV Titration 1560 Amount Sodium Chloride 0.9% 1, 1560 000 ml @ 130 mls/hr IV . Q7H42M [facility] Rx#:[id number] Output: Gastric Drainage 50 Other: # Voids 2 2 # Bowel Movements 1 - Exam Head normocephalic Neck supple Lungs clear to auscultation bilaterally no wheezing or crackles Heart regular rate and rhythm S1-S2, no rub or gallop Abdomen is soft nontender nondistended positive bowel sounds no hepatosplenomegaly Extremities no edema Neuro alert and orientated to 3 - Labs CBC & Chem 7: 07/27/23 06:31 07/27/23 06:31 Labs: Abnormal Lab Results - Last 24 Hours (Table) 07/26/23 07/26/23 Range/Units 06:17 06:17 RDW 14.9 H (11.5-14.5) % Lymphocytes # 0.84 L (0.90-5.00) X 10*3/uL Monocytes # 1.18 H (0.20-1.00) X 10*3/uL Eosinophils # 0 L (0.04-0.35) X 10*3/uL Carbon Dioxide 20.7 L (21.6-31.8) mmol/L Anion Gap 14.30 H (4.00-12.00) mmol/L BUN 44.8 H (9.0-27.0) mg/dL BUN/Creatinine Ratio 74.67 H (12.00-20.00) Ratio Total Protein 5.6 L (6.2-8.2) g/dL Albumin 3.6 L (3.8-4.9) g/dL Assessment and Plan Assessment: 1. Abdominal pain secondary to small bowel obstruction 2. Pancreatitis 3. History of atrial fibrillation 4. History of essential hypertension 5. History of hyperlipidemia 6. History of hypothyroidism 7. Underlying history of coronary artery disease with previous history of angioplasty and coronary artery bypass graft surgery At this time patient will be admitted NG tube placed Surgical service is consulted Patient currently nothing by mouth Plans for small bowel series 07/27/2023 Repeat labs ordered for a.m.
[2023-07-28 08:49] LABS: Basophils # (A) 0.02 X 10*3/uL (0.00-0.10); Basophils % (A) 0.3 %; Eosinophils # (A) 0.01 X 10*3/uL (0.04-0.35); Eosinophils % (A) 0.1 %; HGB 11.7 g/dL (13.0-17.0); Lymphocytes # (A) 1.34 X 10*3/uL (0.90-5.00); Lymphocytes % (A) 18.5 %; MCH 28.7 pg (27.0-32.0); MCHC 32.5 g/dL (32.0-37.0); MCV 88.5 FL (80.0-97.0); Mean Platelet Volume 10.5 FL (9.5-12.2); Monocytes # (A) 1.09 X 10*3/uL (0.20-1.00); Monocytes % (A) 15.1 %; NRBC Per 100 WBC 0 X 10*3/uL (0.00-0.01); Neutrophils # (A) 4.75 X 10*3/uL (1.80-7.70); Neutrophils % (A) 65.7 %; Platelet Count 183 X 10*3/uL (140-440); RBC 4.07 X 10*6/uL (4.40-5.60); RDW 14.7 % (11.5-14.5); WBC 7.23 X 10*3/uL (4.50-10.00)
--- NOTE | 2023-07-28 09:02 | P.PN ---
Subjective Progress Note Date: 07/28/23 Morgan Avendano, is an 88-year-old male patient who presented to the ER with concerns of abdominal distention and cramping. Patient reports his symptoms started around 9 PM yesterday which was unable to have a bowel movement and continuous cramping. Patient has a history of coronary artery bypass graft janee deidre, atrial fibrillation, hyperlipidemia, hypertension. Abdominal x-ray completed showing evaluation for free air is limited by spinal imaging findings suspicious for bowel obstruction. CT of abdomen and pelvis completed showing small bowel obstruction small bowel loops measure up to 4.6 cm no evidence of pneumatosis. No evidence of obstructive renal calculi. Nonobstructive calculus in the inferior pole the right kidney no acute findings. Chest x-ray completed showing no evidence for acute pulmonary disease lab work revealing white blood cell 12.9, creatinine 0.61 bun 37 lipase elevated at 3112. At this time patient will be admitted NG tube has been placed surgical services consulted patient made nothing by mouth. Current vital signs temp 90.3, heart rate 74, respiratory 18, blood pressure 115/86 with pulse ox 97% on room air. Patient reports some improvement with abdominal pain. Patient denies any nausea or vomiting at this time. Patient denies chest pain or shortness of breath. Patient denies any urinary burning or frequency. On 07/25/2023 patient was seen and examined on the medical floor he is alert and oriented 3 in no apparent distress, he is still complaining of some abdominal discomfort, however he is improved since yesterday, NG tube is still in, there is no fever or chills no headache or dizziness no chest pain no shortness of breath no cough no nausea or vomiting, patient is not passing any gas or having any bowel movement, there is no urinary symptoms. On 07/26/2023 patient's alert and oriented 3. Patient reports improvement of abdominal discomfort compared to yesterday NG tube remains in place. Per surgical services plans for small bowel series tomorrow and if normal NG tube earlier removed and liquid diet will be started. Current vital signs temp 97.6, 84, respiratory 16, blood pressure 127/78 with a pulse ox 93 On 07/27/2023 patient was seen and examined on the medical floor he is alert and oriented 3 in no apparent distress there is no fever or chills no headache or dizziness no chest pain no shortness of breath no cough no nausea or vomiting no abdominal pain no diarrhea and no urinary symptoms. Patient is scheduled for EG D today on 07/28/2023 patient's alert and oriented times 3. Discussed case with surgical services diet will be advanced possible discharge today. CMP currently pending vital signs temp 90.2, her 84, respiratory rate 17, blood pressure 149/77 with pulse ox 99% on room air. Patient denies chest pain or shortness of breath. Patient denies nausea vomiting or diarrhea. Patient denies any urinary burning or frequency. Patient has been having small bowel movements Objective - Vital Signs Vital signs: Vital Signs Temp 98.2 F 07/28/23 06:59 Pulse 84 07/28/23 06:59 Resp 17 07/28/23 06:59 BP 149/77 07/28/23 06:59 Pulse Ox 99 07/28/23 06:59 FiO2 Intake & Output 07/27/23 07/28/23 07/28/23 18:59 06:59 18:59 Intake Total 2520 Balance 2520 Intake: Intake, IV Titration 1560 Amount Sodium Chloride 0.9% 1, 1560 000 ml @ 130 mls/hr IV . Q7H42M [facility] Rx#:[id number] Oral 960 Other: Voiding Method Toilet # Voids 6 1 # Bowel Movements 3 1 - Exam Head normocephalic Neck supple Lungs clear to auscultation bilaterally no wheezing or crackles Heart regular rate and rhythm S1-S2, no rub or gallop Abdomen is soft nontender nondistended positive bowel sounds no hepatosplenomegaly Extremities no edema Neuro alert and orientated to 3 - Labs CBC & Chem 7: 07/28/23 05:46 07/27/23 06:31 Labs: Abnormal Lab Results - Last 24 Hours (Table) 07/27/23 07/27/23 07/28/23 Range/Units 06:31 06:31 05:46 RBC 4.24 L 4.07 L (4.40-5.60) X 10*6/uL Hgb 12.2 L 11.7 L (13.0-17.0) g/dL Hct 38.5 L 36.0 L (39.6-50.0) % MCHC 31.7 L (32.0-37.0) g/dL RDW 14.6 H 14.7 H (11.5-14.5) % Monocytes # 1.09 H 1.09 H (0.20-1.00) X 10*3/uL Eosinophils # 0.01 L (0.04-0.35) X 10*3/uL Sodium 146 H (135-145) mmol/L Potassium 3.0 L (3.5-5.5) mmol/L Chloride 112 H (96-109) mmol/L Carbon Dioxide 19.2 L (21.6-31.8) mmol/L Anion Gap 14.80 H (4.00-12.00) mmol/L BUN 35.9 H (9.0-27.0) mg/dL Creatinine 0.5 L (0.6-1.5) mg/dL BUN/Creatinine Ratio 71.80 H (12.00-20.00) Ratio Glucose 69 L (70-110) mg/dL Calcium 7.9 L (8.7-10.3) mg/dL Assessment and Plan Assessment: 1. Abdominal pain secondary to small bowel obstruction 2. Pancreatitis 3. History of atrial fibrillation 4. History of essential hypertension 5. History of hyperlipidemia 6. History of hypothyroidism 7. Underlying history of coronary artery disease with previous history of angioplasty and coronary artery bypass graft surgery At this time patient will be admitted Patient started on clear liquid diet Surgical service is consulted Patient currently nothing by mouth Small bowel series completed on 07/27/2023 Repeat labs ordered for a.m.
[2023-07-28 11:31] LABS: ALT 15 U/L (10-49); AST 19 U/L (14-35); Albumin 3.1 g/dL (3.8-4.9); Albumin/Globulin Ratio 1.94 Ratio (1.60-3.17); Alkaline Phosphatase 57 U/L (41-126); Blood Urea Nitrogen 28.8 mg/dL (9.0-27.0); Calcium 8.1 mg/dL (8.7-10.3); Chloride 114 mmol/L (96-109); Globulin 1.6 g/dL (1.6-3.3); Glucose 133 mg/dL (70-110); Potassium 3.2 mmol/L (3.5-5.5); Sodium 146 mmol/L (135-145); Total Bilirubin 0.4 mg/dL (0.3-1.2); Total Protein 4.7 g/dL (6.2-8.2)
--- NOTE | 2023-07-28 11:37 | P.PN ---
Subjective Progress Note Date: 07/28/23 CHIEF COMPLAINT: Small bowel obstruction HISTORY OF PRESENT ILLNESS: Patient denies any abdominal pain. He is sitting up at bedside chair. He tolerated the clear liquid diet. He is having bowel movements. Denies any nausea or vomiting. NG tube was removed yesterday. Afebrile. WBC 7.23 Hgb 11.7 potassium is 3.2 PHYSICAL EXAM: VITAL SIGNS: Reviewed. GENERAL: Well-developed in no acute distress. ABDOMEN: Soft. Nontender. Nondistended NEUROLOGIC: Alert and oriented. Cranial nerves II through XII grossly intact. ASSESSMENT: 1. Small bowel obstruction resolved 2. Hypokalemia PLAN: -Advance diet to full liquids -Patient can be discharge from surgical standpoint if tolerates the full liquids for lunch -Replace potassium -Check magnesium level. If low, then replace. -Encourage patient to increase activity level -If patient discharged today continue full liquid diet for 2 more days and then advance as tolerated to a low fiber diet. Patient to follow-up with Dr. Luna in the office in 1 week. Physician Construction Technician note has been reviewed by physician. Signing provider agrees with the documented findings, assessment, and plan of care. I have personally seen and examined the patient, reviewed the ASSISTANT DESIGNER /PAs history, exam and MDM and agree with the assessment and plan as written. Based on total visit time, I have performed more than 50% of the visit. As above: Patient doing better today. Still feels very weak. Tolerating liquid diet. May slowly advance. Continue working with physical therapy. Patient may require rehab. Objective - Vital Signs Vital signs: Vital Signs Temp 98.2 F 07/28/23 06:59 Pulse 84 07/28/23 08:00 Resp 17 07/28/23 08:00 BP 149/77 07/28/23 06:59 Pulse Ox 99 07/28/23 06:59 FiO2 Intake & Output 07/27/23 07/28/23 07/28/23 18:59 06:59 18:59 Intake Total 2520 Balance 2520 Intake: Intake, IV Titration 1560 Amount Sodium Chloride 0.9% 1, 1560 000 ml @ 130 mls/hr IV . Q7H42M [facility] Rx#:[id number] Oral 960 Other: Voiding Method Toilet Toilet # Voids 6 1 # Bowel Movements 3 1 - Labs CBC & Chem 7: 07/28/23 05:46 07/28/23 05:46 Labs: Abnormal Lab Results - Last 24 Hours (Table) 07/27/23 07/27/23 07/28/23 Range/Units 06:31 06:31 05:46 RBC 4.24 L 4.07 L (4.40-5.60) X 10*6/uL Hgb 12.2 L 11.7 L (13.0-17.0) g/dL Hct 38.5 L 36.0 L (39.6-50.0) % MCHC 31.7 L (32.0-37.0) g/dL RDW 14.6 H 14.7 H (11.5-14.5) % Monocytes # 1.09 H 1.09 H (0.20-1.00) X 10*3/uL Eosinophils # 0.01 L (0.04-0.35) X 10*3/uL Sodium 146 H (135-145) mmol/L Potassium 3.0 L (3.5-5.5) mmol/L Chloride 112 H (96-109) mmol/L Carbon Dioxide 19.2 L (21.6-31.8) mmol/L Anion Gap 14.80 H (4.00-12.00) mmol/L BUN 35.9 H (9.0-27.0) mg/dL Creatinine 0.5 L (0.6-1.5) mg/dL BUN/Creatinine Ratio 71.80 H (12.00-20.00) Ratio Glucose 69 L (70-110) mg/dL Calcium 7.9 L (8.7-10.3) mg/dL
[2023-07-28] MEDS: POTASSIUM CHLORIDE ER 20 MEQ TAB.ER PO STA (13:00)
[2023-07-29 07:36] VITALS: BP 137/87; PULSE 77; RESP 18; TEMP 98.2
[2023-07-29 11:18] LABS: Basophils # (A) 0.03 X 10*3/uL (0.00-0.10); Basophils % (A) 0.4 %; Eosinophils # (A) 0.05 X 10*3/uL (0.04-0.35); Eosinophils % (A) 0.7 %; HGB 12.4 g/dL (13.0-17.0); Lymphocytes % (A) 22.8 %; MCH 28.9 pg (27.0-32.0); MCHC 32.6 g/dL (32.0-37.0); MCV 88.6 FL (80.0-97.0); Mean Platelet Volume 10.2 FL (9.5-12.2); Monocytes # (A) 0.86 X 10*3/uL (0.20-1.00); Monocytes % (A) 12.2 %; NRBC Per 100 WBC 0 X 10*3/uL (0.00-0.01); Neutrophils # (A) 4.47 X 10*3/uL (1.80-7.70); Neutrophils % (A) 63.6 %; Platelet Count 195 X 10*3/uL (140-440); RBC 4.29 X 10*6/uL (4.40-5.60); RDW 14.9 % (11.5-14.5); WBC 7.03 X 10*3/uL (4.50-10.00)
[2023-07-29 11:24] LABS: ALT 17 U/L (10-49); AST 22 U/L (14-35); Albumin 3.2 g/dL (3.8-4.9); Albumin/Globulin Ratio 1.88 Ratio (1.60-3.17); Alkaline Phosphatase 62 U/L (41-126); Blood Urea Nitrogen 19.6 mg/dL (9.0-27.0); Calcium 8.5 mg/dL (8.7-10.3); Carbon Dioxide 25.1 mmol/L (21.6-31.8); Chloride 110 mmol/L (96-109); Globulin 1.7 g/dL (1.6-3.3); Glucose 92 mg/dL (70-110); Sodium 143 mmol/L (135-145); Total Bilirubin 0.3 mg/dL (0.3-1.2); Total Protein 4.9 g/dL (6.2-8.2)
--- NOTE | 2023-07-29 11:24 | P.DS ---
Providers Date of admission: 07/24/23 05:59 Expected date of discharge: 07/29/23 Attending physician: Stevan Botello Consults: 07/24/23 05:53 Consult Physician Routine Consulting Provider: Basil Luna Consult Reason/Comments: sbo Do you want consulting provider notified?: Yes Primary care physician: Tamica Trujillo Hospital Course: Discharge diagnosis 1. Abdominal pain secondary to small bowel obstruction 2. Pancreatitis 3. History of atrial fibrillation 4. History of essential hypertension 5. History of hyperlipidemia 6. History of hypothyroidism 7. Underlying history of coronary artery disease with previous history of angioplasty and coronary artery bypass graft surgery Hospital course Morgan Avendano, is an 88-year-old male patient who presented to the ER with concerns of abdominal distention and cramping. Patient reports his symptoms started around 9 PM yesterday which was unable to have a bowel movement and continuous cramping. Patient has a history of coronary artery bypass graft surgery, atrial fibrillation, hyperlipidemia, hypertension. Abdominal x-ray completed showing evaluation for free air is limited by spinal imaging findings suspicious for bowel obstruction. CT of abdomen and pelvis completed showing small bowel obstruction small bowel loops measure up to 4.6 cm no evidence of pneumatosis. No evidence of obstructive renal calculi. Nonobstructive calculus in the inferior pole the right kidney no acute findings. Chest x-ray completed showing no evidence for acute pulmonary disease lab work revealing white blood cell 12.9, creatinine 0.61 bun 37 lipase elevated at 3112. At this time patient will be admitted NG tube has been placed surgical services consulted patient made nothing by mouth. Current vital signs temp 90.3, heart rate 74, respiratory 18, blood pressure 115/86 with pulse ox 97% on room air. Patient reports some improvement with abdominal pain. Patient denies any nausea or vomiting at this time. Patient denies chest pain or shortness of breath. Patient denies any urinary burning or frequency. On 07/25/2023 patient was seen and examined on the medical floor he is alert and oriented 3 in no apparent distress, he is still complaining of some abdominal discomfort, however he is improved since yesterday, NG tube is still in, there is no fever or chills no headache or dizziness no chest pain no shortness of breath no cough no nausea or vomiting, patient is not passing any gas or having any bowel movement, there is no urinary symptoms. On 07/26/2023 patient's alert and oriented 3. Patient reports improvement of abdominal discomfort compared to yesterday NG tube remains in place. Per surgical services plans for small bowel series tomorrow and if normal NG tube earlier removed and liquid diet will be started. Current vital signs temp 97.6, 84, respiratory 16, blood pressure 127/78 with a pulse ox 93 On 07/27/2023 patient was seen and examined on the medical floor he is alert and oriented 3 in no apparent distress there is no fever or chills no headache or dizziness no chest pain no shortness of breath no cough no nausea or vomiting no abdominal pain no diarrhea and no urinary symptoms. Patient is scheduled for EGD today on 07/28/2023 patient's alert and oriented times 3. Discussed case with surgical services diet will be advanced possible discharge today. CMP currently pending vital signs temp 90.2, her 84, respiratory rate 17, blood pressure 149/77 with pulse ox 99% on room air. Patient denies chest pain or shortness of breath. Patient denies nausea vomiting or diarrhea. Patient denies any urinary burning or frequency. Patient has been having small bowel movements On 07/29/2023 patient has been tolerating diet. Discussed case with surgical services patient cleared for discharge okay to resume home medications including eliquis. Recommendations for diet continue full liquid diet for 2 more days then advance as tolerated to low fiber diet patient to follow-up with Dr. mcneal in 1 week Patient Condition at Discharge: Stable Plan - Discharge Summary Discharge Rx Participant: Yes New Discharge Prescriptions: Continue Levothyroxine Sodium [Synthroid] 88 mcg PO DAILY Rosuvastatin [Crestor] 10 mg PO [facility] Ascorbic Acid [Vitamin C] 500 mg PO DAILY Multivitamins, Thera [Multivitamin (formulary)] 1 tab PO DAILY Ezetimibe [Zetia] 10 mg PO DAILY Apixaban [Eliquis] 5 mg PO BID tab Furosemide [Lasix] 20 mg PO DAILY PRN PRN Reason: Edema Calcium 26/Vit D3/Magnesium 15 [[id number] Complx 167Mg Cp] 1 cap PO BID Losartan Potassium 50 mg PO DAILY Latanoprost [Xalatan 0.005%] 1 drop BOTH EYES HS [place]-3/Dha/Epa/Fish Oil [Fish Oil 500 mg Softgel] 1 cap PO DAILY Cholecalciferol [Vitamin D3 (25 Mcg = 1000 Iu)] 25 mcg PO DAILY Loratadine [Claritin] 10 mg PO DAILY Vit C/E/Zn/Coppr/Lutein/Zeaxan [Preservision Areds 2 Softgel] 1 cap PO DAILY Discharge Medication List Ascorbic Acid [Vitamin C] 500 mg PO DAILY 03/22/21 [History] Cholecalciferol [Vitamin D3 (25 Mcg = 1000 Iu)] 25 mcg PO DAILY 03/22/21 [History] Ezetimibe [Zetia] 10 mg PO DAILY 03/22/21 [History] Latanoprost [Xalatan 0.005%] 1 drop BOTH EYES HS 03/22/21 [History] Levothyroxine Sodium [Synthroid] 88 mcg PO DAILY 03/22/21 [History] Loratadine [Claritin] 10 mg PO DAILY 03/22/21 [History] Losartan Potassium 50 mg PO DAILY 03/22/21 [History] Multivitamins, Thera [Multivitamin (formulary)] 1 tab PO DAILY 03/22/21 [History] [place]-3/Dha/Epa/Fish Oil [Fish Oil 500 mg Softgel] 1 cap PO DAILY 03/22/21 [History] Rosuvastatin [Crestor] 10 mg PO TUTH 03/22/21 [History] Vit C/E/Zn/Coppr/Lutein/Zeaxan [Preservision Areds 2 Softgel] 1 cap PO DAILY 03/22/21 [History] Apixaban [Eliquis] 5 mg PO BID tab 03/25/21 [Rx] Calcium 26/Vit D3/Magnesium 15 [[id number]-[id number] Complx 167Mg Cp] 1 cap PO BID 07/24/23 [History] Furosemide [Lasix] 20 mg PO DAILY PRN 07/24/23 [History] Follow up Appointment(s)/Referral(s): Basil Luna MD [Medical Doctor] - 1 Week Tamica Trujillo MD [Primary Care Provider] - 1-2 days Discharge Disposition: HOME SELF-CARE
--- NOTE | 2023-07-29 12:32 | P.PN ---
Subjective Progress Note Date: 07/29/23 CHIEF COMPLAINT: Small bowel obstruction HISTORY OF PRESENT ILLNESS: Patient denies any abdominal pain. He is tolerating full liquid diet. He is having flatus. Did have a bowel movement yesterday. Denies any nausea or vomiting. Patient reports he is feeling stronger today. Afebrile. WBC 7.03 Hgb 12.4 platelets 195 sodium is 143 potassium is 4.0 creatinine 0.5 PHYSICAL EXAM: VITAL SIGNS: Reviewed. GENERAL: Well-developed in no acute distress. ABDOMEN: Soft. Nontender. Nondistended NEUROLOGIC: Alert and oriented. Cranial nerves II through XII grossly intact. ASSESSMENT: 1. Small bowel obstruction resolved 2. Hypokalemia improved PLAN: -Continue full liquid diet for the next 2 days and then advance as tolerated to a low fiber diet -Patient can be discharge from surgical standpoint -Increase activity level Physician Lighting Designer note has been reviewed by physician. Signing provider agrees with the documented findings, assessment, and plan of care. Objective - Vital Signs Vital signs: Vital Signs Temp 98.2 F 07/29/23 07:18 Pulse 77 07/29/23 08:00 Resp 18 07/29/23 08:00 BP 137/87 07/29/23 07:18 Pulse Ox 95 07/29/23 07:18 FiO2 Intake & Output 07/28/23 07/29/23 07/29/23 18:59 06:59 18:59 Intake Total 1520 Balance 1520 Intake: Intake, IV Titration 1040 Amount Sodium Chloride 0.9% 1, 1040 000 ml @ 130 mls/hr IV . [id number] [facility] Rx#:[id number] Oral 480 Other: Voiding Method Toilet Toilet # Voids 2 2 - Labs CBC & Chem 7: 07/29/23 06:09 07/29/23 06:09 Labs: Abnormal Lab Results - Last 24 Hours (Table) 07/28/23 Range/Units 05:46 Sodium 146 H (135-145) mmol/L Potassium 3.2 L (3.5-5.5) mmol/L Chloride 114 H (96-109) mmol/L BUN 28.8 H (9.0-27.0) mg/dL Creatinine 0.5 L (0.6-1.5) mg/dL BUN/Creatinine Ratio 57.60 H (12.00-20.00) Ratio Glucose 133 H (70-110) mg/dL Calcium 8.1 L (8.7-10.3) mg/dL Total Protein 4.7 L (6.2-8.2) g/dL Albumin 3.1 L (3.8-4.9) g/dL
== END 2023-07-29 13:27 | disposition home or self-care (01) | DRG 388 ==
LOC: EC 03:33 → 4SSUR 05:59
PROVIDERS: ADMIT Internal Medicine; ATTEND Internal Medicine
PROC: 0D9670Z Drainage of Stomach with Drainage Device, Via Natural or Artificial Opening (ICD-10-PCS; principal; 2023-07-24)
DX: K56.609 Unspecified intestinal obstruction, unspecified as to partial versus complete obstruction (principal); K85.90 Acute pancreatitis without necrosis or infection, unspecified; I48.91 Unspecified atrial fibrillation; I10 Essential (primary) hypertension; E03.9 Hypothyroidism, unspecified; K21.9 Gastro-esophageal reflux disease without esophagitis; I25.10 Atherosclerotic heart disease of native coronary artery without angina pectoris; E87.6 Hypokalemia; E78.5 Hyperlipidemia, unspecified; Z79.01 Long term (current) use of anticoagulants; Z79.890 Hormone replacement therapy; Z79.899 Other long term (current) drug therapy; Z95.5 Presence of coronary angioplasty implant and graft; Z95.1 Presence of aortocoronary bypass graft
CPT/HCPCS: 36415; 43753; 71045; 74018; 74019; 74176; 74250; 80048; 80053; 82150; 83690; 83735; 85025; 96374; 96375; 99285